=== PATIENT | male | born 1940 | race Caucasian/White ===

== ENCOUNTER 2016-12-24 06:02 | Inpatient (IN) | payer MEDICARE ==
[~2016-12-24] VITALS: Ht 172.7 cm; Wt 83.9 kg
[2016-12-24] VITALS (17 sets, daily range): BP systolic 104–142; BP diastolic 45–78; PULSE 71–124; RESP 10–21; O2SAT 90–100
[~2016-12-24 06:02] MED LIST: ATOR20TA PO; CeFAZolin 2 Gm/50 mL D5W IV Premix IV ONE; CeFAZolin 2 Gm/50 mL D5W IV Premix IV PRN; DEXTROSE IV ONE; Furosemide 10 mg/mL 2 mL Inj IV ONE; Furosemide 10 mg/mL 2 mL Inj IV PRN; GABA-502 PO; GLIM4TAB2 PO; HYDR-4003 PO; LISI1TAB9 PO; Lactated Ringer's 1,000 ML IV ONE; MANNITOL IV ONE; METF1000 PO; METO25TA99 PO; Mannitol 25% 12.5 Gm/50 mL Inj IVPUSH PRN; NITR0.4T6 SL; TRIA0.1220 PO; TRIA0.2525 PO
--- NOTE | 2016-12-24 07:20 | PCM.HPANE ---
Patient Data Surgeon Admitting Provider: Attending Provider:Brenda Spaulding MD Primary Care Physician:Servando Gomez MD Other Provider:[facility] Reason for Visit Right Renal Mass Ht/WT & BMI Height (Feet): 5 Height (Inches): 8 Weight (Kilograms): 80.9 Body Mass Index 27.00 Allergies Coded Allergies: No Known Allergies (Unverified , 08/15/16) Past Anesthesia History Anesthesia History: Denies:: Abnormal Airway, Anesthesia Reactions, Difficult Intubation, Fam Anesthesia Reaction, Fam Malignant Hypertherm, Malignant Hyperthermia Diabetes History Hx Diabetes?: Yes Type of Diabetes: Type II Glycemic Control: Oral Medication MRSA MRSA: No Medications Hypertension Medication: Yes (lisinopril/hctz) Home Meds Incl Beta Taj: Yes Date Beta Taj Taken: Dec 23, 2016 Time Beta Taj Taken: 0800 Reported Medications Hydrocodone-Acetaminophen 5-325 mg 1 Each Tablet1 Tablet PO Q10H PRN For Pain Ref 0 12/21/16 Gabapentin 300 Mg [id number] Mg PO BID Ref 0 12/21/16 Nitroglycerin SL 0.4 Mg Tab.subl0.4 Mg SL 08/14/16 Metoprolol Succinate ER 25 Mg Tab.er.24h25 Mg PO DAILY Ref 0 08/14/16 Atorvastatin (Lipitor)20 Mg Gpcvop32 Mg PO DAILY Ref 0 08/14/16 Triazolam 0.125 Mg Tablet0.125 Mg PO HS PRN Insomnia 30 Days 06/15/16 Metformin (Glucophage)1,000 Mg Tablet1,000 Mg PO BID Ref 0 06/14/16 Lisinopril / HCTZ 20-12.5 mg 1 Each Tablet1 Each PO DAILY Ref 0 06/14/16 Glimepiride 4 Mg Tablet4 Mg PO BID #30 TABLET Ref 0 06/14/16 Discontinued Reported Medications Triazolam 0.25 Mg Tablet0.125 Mg PO HS PRN sleep 30 Days 08/14/16 Cholecalciferol (Vitamin D3) (Vitamin D3)2,000 Unit Capsule2,000 Unit PO DAILY 08/14/16 Cyanocobalamin (Vitamin B12)500 Mcg [id number] Mcg PO DAILY 08/14/16 Multivitamin (Multivitamins)1 Each Capsule1 Each PO DAILY 06/15/16 Aspirin 325 Mg Raxdhv364 Mg PO DAILY #1 BOTTLE 06/14/16 History History of ENT Problems?: No HEENT History: Positive for:: Cataracts Hearing Problem Denies:: Abnormal Airway Difficult Intubation Dysphagia Glaucoma Sinus Problem TMJ Denture Type: None Teeth Condition: Within Normal Limits Missing Teeth Hx of Heart Problems?: No Cardiovascular History: Positive for:: Chest Pain (cardiology cardiac work up "heart is strong") Edema Hypertension Peripheral Vascular Denies:: AICD Abdominal Aortic Aneurism Atrial Fibrillation Cardiac Surgery Congestive Heart Failure Coronary Artery Disease Heart Murmur Irregular Heartbeat Pacemaker Rheumatic Fever Thrombophlebitis Valvular Heart Disease Hx of Respiratory Problem?: Yes Respiratory History: Positive for:: Chest Surgery (CT guided Bx lt lung ) Denies:: Asthma COPD Cough Dyspnea Hemoptysis Oxygen Administration Pneumonia Pulmonary Embolism Tuberculosis Use of C-PAP Machine Use of Inhalers / NEBS Hx Neurologic Problems?: No Neurological History: Positive for:: Dizziness (worse straining) Denies:: Alzheimer's Disease CVA Dementia Headaches Multiple Sclerosis Parkinson's Disease Seizures TIA Hx of GI Problems?: No Gastrointestinal History: Denies:: Cirrhosis Diverticulitis Gall Bladder Disease Gastroesphageal Reflux Gastrointestinal Bleeding Heartburn Hepatitis Hiatal Hernia Liver Disease Rectal Bleeding Hx of Problems?: Yes Genitourinary History: Positive for:: Kidney Stones (passed on own last one 10 years ago) Denies:: HX of Hemodialysis Urinary Tract Infection HX of Peritoneal Dialysis: No Male Hx: Denies:: Prostate Problems Scrotal Mass Testicular Surgery Skin History: Denies:: History Skin Disorders? Pressure Ulcers Hx Musculoskeletal Problems?: No Musculoskeletal History: Positive for:: Osteoarthritis Denies:: Back Injury Degenerative Joint Fibromyalgia Joint Replacement Musculoskeletal Trauma Myasthenia Gravis Rheumatoid Arthritis Systemic Lupus Hx of Psycho/Social Problems?: No Hx Surgeries?: No Hx Any Other Health Problems?: Yes Other History: Positive for:: Hospitalization Denies:: Cancer Endocrine Disease Thyroid Disease History Blood Transfusions: Denies:: Blood Transfuse Reaction Blood Transfusions Hx Diabetes: Yes Hx Alcohol Use: NoHx Substance Use: No Smoking Status: Unknown if Ever Smoker Have You Smoked inLast 12 mo: No Stop/Bang Treated for Sleep Apnea?: No Do You Have a CPAP Machine?: No S-Snoring: Do You Snore Loudly: No T-Tired: feel tired, fatigued: Yes O-Obsered: Observed not breath: No P-Blood Pressure: treated: Yes B- Body Mass Index > 35 kg/m2: No A- Age over 50: Yes G- Gender Male: Yes RAMÍREZ Risk Assessment: Low Risk, <3 Yes Risk Assessment Category Category 1A: Patient has history of documented sleep apnea, and HAS NOT received any narcotic, sedative or anesthesia administration during this stay. Category 1B: Patient has history of documented sleep apnea, and HAS received any narcotic , sedative or anesthesia administration during this stay Category 2: Patient has SUSPECTED Obstructive Sleep Apnea, and HAS received any narcotic , sedative or anesthesia administration during this stay. Category 3: Patient has SUSPECTED Obstructive Sleep Apnea and HAS NOT received narcotic, sedative or anesthesia administration during this stay. Category 4: Outpatient in Procedural Areas with known sleep apnea or who screen positive for High Risk via the STOP/BANG questionnaire. Exam Exam Vital Signs Vital Signs Date Time Temp Pulse Resp B/P Pulse Ox O2 Delivery O2 Flow Rate FiO2 12/24/16 06:30 35.9 78 15 125/64 97 Room Air General Appearance: Oriented X3 HEENT/AIRWAY: MP 2 Lungs: Normal Air Movement Heart: Regular Rate/Rhythm Meds/Labs/Diagnostics Admission Meds Current Medications Lactated Ringer's (Lr) 1,000 ml @ 120 mls/hr Q8H20M ONCE IV Last administered on 12/24/16t 06:31; Start 12/24/16 at 05:00; Stop 12/24/16 at 13:19 Labs Test 12/23/16 09:25 12/24/16 07:13 Hold Urine Received (Received) Hold Rickreall Top Tube Received (Received) Plan Impression Patient chart reviewed, patient interviewed and anesthestic plan with risks, benefits, and alternatives discussed, and informed consent obtained. ASA Physical Status: ASA3 Severe Disease Anesthetic Support Modalities: Arterial Line Anesthetic Plan: GA, SAB Bene/Risks/Altern/Consents: Yes HP Complete Prior to Induction: Yes Dontrell Vallejo MD Dec 24, 2016 07:20
[2016-12-24] MEDS ORDERED: Labetalol 5 mg/mL 4 mL Inj IV PRN (08:10)
[2016-12-24] MEDS ORDERED: EPHEDrine Sulfate 50 mg/mL Inj IVPUSH PRN (08:10)
[2016-12-24] MEDS ORDERED: Lactated Ringer's 1,000 ML IV SCH (08:10)
[2016-12-24] MEDS ORDERED: HYDROmorphone 1 mg/mL Inj IVPUSH PRN (08:10)
[2016-12-24] MEDS ORDERED: Ondansetron 2 mg/mL 2 mL Inj IVPUSH PRN (08:10)
[2016-12-24] MEDS ORDERED: Lactated Ringer's 500 ML IV PRN (08:10)
[2016-12-24] MEDS ORDERED: Phenylephrine 10,000 mCg/mL Inj IVPUSH PRN (08:10)
[2016-12-24] MEDS ORDERED: Dexamethasone 4 mg/mL Inj IVPUSH PRN (08:10)
[2016-12-24] MEDS ORDERED: MetoCLOpramide 5 mg/mL 2 mL Inj IVPUSH PRN (08:10)
[2016-12-24] MEDS ORDERED: Lactated Ringer's 1,000 ML IV ONE (10:12)
[2016-12-24 10:26] LABS: APPEARANCE,URINE CLEAR (CLEAR,HAZY); COLOR,URINE STRAW (YELLOW); OCCULT BLOOD,URINE TRACE (NEGATIVE); UROBILINOGEN,URINE NORMAL (NORMAL)
[2016-12-24] MEDS: fentaNYL-PF 50 mCg/mL 2 mL Inj IVPUSH PRN ×2 (11:01→11:29)
[2016-12-24] MEDS ORDERED: diphenhydrAMINE 25 mg Capsule PO PRN (11:20)
[2016-12-24] MEDS ORDERED: MetoCLOpramide 5 mg/mL 2 mL Inj ONE (12:03)
[2016-12-24] MEDS ORDERED: Phenylephrine/NS 100 mCg/mL 10 mL Syringe IVPUSH ONE (12:03)
[2016-12-24] MEDS ORDERED: Bupiv-Spinal 0.75%/Dex 8.25% 2 mL Inj ONE (12:03)
[2016-12-24] MEDS ORDERED: MeTOProlol 1 mg/mL 5 mL Inj ONE (12:03)
[2016-12-24] MEDS ORDERED: Ondansetron 2 mg/mL 2 mL Inj ONE (12:03)
[2016-12-24] MEDS ORDERED: Mannitol 25% 12.5 Gm/50 mL Inj ONE (12:03)
[2016-12-24] MEDS ORDERED: Morphine PF 1 mg/mL 10 mL Inj ONE (12:03)
[2016-12-24] MEDS ORDERED: Rocuronium 10 mg/mL 5 mL Inj ONE (12:03)
--- NOTE | 2016-12-24 12:24 | PCM.ANEP1 ---
Post Anesthesia PACU Phase 1 Assessment Vital Signs Vital Signs Date Time Temp Pulse Resp B/P Pulse Ox O2 Delivery O2 Flow Rate FiO2 12/24/16 11:30 83 11 104/47 97 Nasal Cannula 2 12/24/16 11:25 82 11 104/48 90 Room Air 12/24/16 11:15 36.2 79 10 110/45 100 Simple Mask 8 12/24/16 11:10 76 13 105/51 100 Simple Mask 8 12/24/16 11:00 71 18 112/49 100 Simple Mask 8 12/24/16 10:55 75 20 109/51 100 Simple Mask 8 12/24/16 10:50 75 21 112/52 100 Simple Mask 8 12/24/16 10:50 21 100 12/24/16 10:45 36.6 77 20 119/54 100 Simple Mask 8 12/24/16 06:30 35.9 78 15 125/64 97 Room Air Anesthetic Administered: GA, SAB Level of Alertness: Awake, talking Pain: No Nausea or Vomiting: No CV Function & Hydration Stable: Yes Airway Device: Lungs: Normal Air Movement Dermatome Level: Full Sensation PACU Phase 2 Assessment Patient Instructions Provided: N/A Dontrell Vallejo MD Dec 24, 2016 12:24
[2016-12-24] MEDS: HYDROmorphone 1 mg/mL Inj IVPUSH PRN ×2 (12:39→16:28)
[2016-12-24] MEDS: Lactated Ringer's 1,000 ML IV SCH ×2 (12:47→21:25)
--- NOTE | 2016-12-24 13:13 | NUR ---
Transfer to 1003 Patient arrived from PACU via bed, report received from IRENA Parr. Incision site well approx, bio-occlusive dressing C/D/I. ROMAN drain has small amount sero-sang drainange. Pt somnolent but arousable to verbal stimulation. VSS. C/o 9/10 abdominal pain, PRN dilaudid given with some relief. Patient also c/o nausea, zofran given. Pt resting with eyes closed, family at bedside, call light within reach.
--- NOTE | 2016-12-24 16:21 | NUR ---
Respiratory Pt approached twice for IS instruction, not appropriate to follow instruct either time. Will revisit at later time.
--- NOTE | 2016-12-24 17:54 | NUR ---
Mentation/tele/drain Patient continues to be somnolent but arousable. Pt not alert enough to take PO meds at this time. Tele monitoring ordered and started, pt ST in the 120-130s. ROMAN output approx 100mL since arrival to floor. paged, waiting for call back.
--- NOTE | 2016-12-24 19:09 | DRSVH ---
PROCEDURE: CT BRAIN WITHOUT CONTRAST ([id number]) INDICATIONS: Decreased mental status TECHNIQUE: Noncontrast 4.5 mm thick angled axial sections acquired from the foramen magnum to the vertex, with c oronal reformats. COMPARISON: [facility], MR, MR BRAIN W&WO CON, 06/15/2016, 14:53. FINDINGS: Image quality: Excellent. CSF spaces: Basal cisterns are patent. No extra-axial fluid collections. The ventricles are symmet leydi in size and shape. Brain: No intracranial bleeds or masses. There is cerebral volume loss for age, with resultant vent ricular and sulcal prominence. There are periventricular and deep white matter chronic small vessel ischemic changes. There is intracranial internal carotid artery atherosclerosis. Skull and face: Calvarium and visualized facial bones appear intact, without suspicious lesions. Sinuses: Visualized sinuses and mastoids are clear. IMPRESSION: 1. No acute intracranial process. 2. Moderate atrophy and chronic microvascular ischemic changes. Dictated by: Yomaira Zavala M.D. on 12/24/2016 at 19:07 Approved by: Yomaira Zavala M.D. on 12/24/2016 at 19:07
--- NOTE | 2016-12-24 19:28 | OP ---
[address] [address] OPERATIVE REPORT PATIENT: SHIVAM SEXTON : 1940 MR#: [id number] ADMIT: 12/24/2016 JOB ID: [id number] DATE OF SURGERY: 12/24/2016 PREOPERATIVE DIAGNOSIS(ES): Right renal mass. POSTOPERATIVE DIAGNOSIS(ES): Right renal mass. PROCEDURE PERFORMED: 1. Right open partial nephrectomy. 2. Intraoperative ultrasound. SURGEON: Brenda Spaulding MD. NEUROSCIENTIST: Troy Alejandro MD (his expert technical assistance was required to aid in the dissection of the renal mass). FINDINGS: 1. A right renal mass abutting the collecting system consistent with the CT findings which demonstrated the lesion to be 3.7 cm in greatest diameter. 2. A 35 minute clamp time of the right renal vessels. ANESTHESIA: 1. General. 2. Duramorph epidural. ESTIMATED BLOOD LOSS: 500 mL. DRAINS: 1. A 19 round ROMAN drain. 2. A 16-Tunisian Cabrera catheter to the bladder. SPECIMENS: 1. Fat overlying tumor 2. Deep base of renal tumor. 3. Right renal mass. COMPLICATIONS: None. CONDITION: Stable. INDICATION: The patient is a 76-year-old gentleman with a right renal mass. He now presents for the aforementioned procedure. DESCRIPTION OF PROCEDURE: After informed consent was obtained, the patient was taken to the operating room. A time-out was performed identifying correct patient, surgical site, and procedure. General anesthesia was smoothly induced. He was given intravenous antibiotics just prior to the start of procedure. He was placed in a supine position. All pressure points were identified and appropriately padded. A Cabrera catheter was placed using sterile technique in the patient's bladder. It was set to dependent drainage. His abdomen and flank were then prepped and draped in usual sterile fashion. Approximately two fingerbreadths inferior to the right subcostal margin, a 4-5 inch incision was made with a 10 blade. Bovie electrocautery was used to incise the subcutaneous tissues, muscle, and fascial layers. Entry into the intraperitoneal cavity was gained. The white line of Toldt was incised, reflecting the colon medially. Some of the mesenteric attachments were also taken down with Bovie electrocautery. The Bookwalter device was placed over the patient with care being taken to not directly rest it on the patient. The right ureter was identified at the inferior cone of Gerota's. It was tagged with a vessel loop. Next, the duodenum was dissected away from its mesenteric attachments and reflected medially. The inferior vena cava was seen. There was a right renal vein seen also with this maneuver. The renal artery was identified posterior it. It should be noted that the patient has diffuse atherosclerosis involving the aorta as well as the proximal branches of the renal arteries. Care was taken to not manipulate these plaques and the dissection of the renal artery commenced distally towards the renal hilum. The renal vein and artery were then tagged with vessel loops. Next, the kidney was freed from its lateral attachments and some of its superior attachments as well. Gerota's was entered. Over the inferior aspect, the fat was incised over the tumor. The fat was divided over the renal tumor and this was passed off as fat over renal tumor to Pathology for permanent section. Next, the tumor could be plainly seen and an intraoperative ultrasound was performed. This confirmed that the renal mass was abutting the collecting system. 12.5 g of mannitol were given intravenously. Then, the renal hilum, that being the vein and artery together, were clamped with a bulldog. The kidney was iced for 10 minutes. Next, the renal capsule was scored with Bovie electrocautery. The mass was then dissected away from the kidney. This was sent to Pathology as renal mass and it was later tagged at the base to identify the deep margin. Tissue was removed from the base of the defect and passed off the table as frozen section which returned as negative for malignancy. 4-0 Vicryl was used in the defect at the collecting system to close a small opening there and then the bed was also treated with the 4-0 Vicryl as well as some of the small arterial bleeding. Next, argon beam cautery was used at the perimeter at the edge of the defect. FloSeal was placed within the defect as well. Two rolls of Surgicel were placed within the defect and 0 chromic x3 in an interrupted fashion were placed through the capsule, over the Surgicel rolls and out the other side of the defect. These were then all secured down. The clamp was then removed. The overall clamp time was 35 minutes, which is a reflection of just how deep this tumor was into the kidney. Surgicel was placed over the defect and Gerota's was closed over it with interrupted 2-0 chromic. The renal hilum was inspected. It was pulsating and appeared normal. The colon was replaced in its orthotopic position as well as omentum. A 19 round ORMAN drain was placed over this and secured to the skin with 2-0 nylon. The fascial layers were closed with looped 0 PDS x2 from the medial to lateral aspects of the incision. The wound was copiously irrigated, and the Fatuma's layer was closed with 3-0 chromic in interrupted fashion. The skin was then closed with 4-0 Monocryl in running subcuticular fashion. Dermabond was placed over the wound and a drain sponge and Tegaderm was placed over the ROMAN drain. The patient was then reversed from general anesthesia and taken to PACU in good and stable condition. All sponge, needle, instrument counts were correct at the end of the procedure. The patient appeared to tolerate the procedure well without apparent complications. PETER
[2016-12-24 19:55] LABS: BASOPHILS % (AUTO) 0.1 % (0-3); EOSINOPHILS % (AUTO) 0 % (0-5); MONOCYTES % (AUTO) 8.9 % (4-12); Mean Corpuscular Volume 89.5 fL (81-100); NEUTROPHILS % (AUTO) 87.1 % (40-74); Platelet Count 239 bil/L (150-400)
--- NOTE | 2016-12-24 20:28 | PCM.CHPMED ---
Subjective Date of Service: Dec 24, 2016 Provider requesting consult: Brenda Spaulding MD Primary Physician: Admitting Physician: Brenda Spaulding MD Primary Care Physician: Servando Gomez MD Attending Physician: Brenda Spaulding MD Chief Complaint: Chief Complaint: Confusion, tachycardia History of Present Illness: Patient is a 76 year old male with a history of a right renal mass, T2DM, HTN, HLD, and a lung mass who was admitted for a right partial nephrectomy for the right renal mass per Dr. Spaulding. Following the surgery, the patient was noted to be somnolent, but arousable, and confused. He was also noted to be tachycardic in the 110s-120s following surgery. He reports mild abdominal pain at his incision site, but states this is well-controlled. He reports some confusion, generalized weakness, mild nausea, fatigue, difficulty with word finding, and chronic bilateral lower extremity numbness/tingling. He denies facial droop, slurred speech, dysphagia, focal weakness or numbness, vision changes, fevers, chills, vomiting, diarrhea, shortness of breath, chest pain, palpitations, or diaphoresis. Temp 36.8, HR 110, RR 17, BP 137/75, O2 93 on room air. WBC 15.1 with 87% neutrophils, Hb 12.2, Hct 37.7, Plt 239. EKG showed sinus tachycardia. CT head showed no acute pathology, but with moderate atrophy and chronic microvascular ischemic changes. Pt had normal stress test on 07/26/16. Echo on same day showed normal EF with borderline concentric LVH and relaxation abnormality of the LV. Review of Systems: Comprehensive review of systems conducted and was negative except for the pertinent positives listed above. PMH Past Medical History 1. Diabetes, diagnosed over 10 years ago, uncontrolled. Most recent hemoglobin A1c is 8.8% as of January 2015. 2. Hyperlipidemia. Previously on simvastatin but is no longer taking this medication due to muscle aches. 3. Kidney stones. 4. Hypertension, controlled on lisinopril. 5. Lung mass. This problem came to medical attention in November 2015 and did not resolve with medical therapy. Biopsy demonstrated benign tissue. 6. Peripheral neuropathy. EMG June 20, 2016, showed moderate axonal and demyelinating peripheral neuropathic process involving bilateral lower extremities. He also has myopathic pattern of the EMG, left worse than right. This could be related to diabetic neuropathy or statin myopathy. 7. Vitamin B 12 deficiency. In the past treated with B12 shots. Most recent available B12 level was 268 as of May 2012. 8. Right bundle branch block, newly identified today in the emergency department. Unfortunately there are no old EKGs available for review. Bedside Blood Glucose: 211 Surgical History Right partial nephrectomy Allergies: Coded Allergies: No Known Allergies (Unverified , 08/15/16) Family History Family History No history of autoimmune disease or lung disease. Social History Hx Alcohol Use: NoHx Substance Use: No Smoking Status: Unknown if Ever Smoker Exam Vital Signs Vital Sign - Last Date Time Temp Pulse Resp B/P Pulse Ox O2 Delivery O2 Flow Rate FiO2 12/24/16 18:46 36.8 124 142/78 94 Nasal Cannula 3.00 12/24/16 16:37 16 Additional Information: General: Alert, Oriented X3 (to name, date, and place), Cooperative, Slightly somnolent but arousable. Appears fatigued. No acute distress Head: Normocephalic, atraumatic. External ears normal. Eyes: PERRLA, EOMI. Anicteric sclerae. Mouth: Mouth normal, Mucous membranes moist/pink Neck: Neck supple with full range of motion. Chest& Lungs: Clear to auscultation bilaterally with no crackles, wheezes, or rhonchi. Cardiovascular: Regular rate/rhythm, Normal S1, Normal S2, No murmurs/rubs/ gallops Abdomen: Non-tender, Non-distended, No masses, Normoactive bowel tones, Soft Musculoskeletal: Normal range of motion Extremities: No cyanosis/clubbing/edema bilaterally Neurological: Generalized weakness in all 4 extremities. Pt has intermittent trouble with word finding, but towards the end of the visit he was conversational, speaking in full sentences. CN II-XII intact. Finger-nose slow but normal. Lab and Diagnostics Result Diagram: 12/24/161944 Assessment & Plan Assessment Patient is a 76 year old male with a history of a right renal mass, T2DM, HTN, HLD, and a lung mass who presented with somnolence, confusion, and sinus tachycardia status post right partial nephrectomy for the right renal mass. Altered mental status, acute. - Patient appears slightly somnolent and tachycardic post surgery. There are no focal neurologic signs on exam and CT head was negative, so stroke is less likely. Given his tachycardia, consider PE vs sepsis. His WBC was elevated as well; while this may be a stress reaction, there was a left shift. UA negative. - Lactic acid ordered - BMP ordered - CXR ordered - Blood cultures ordered - Monitor vitals regularly - Continue LR @ 125 ml/hr - Started Zosyn q8h. Tachycardia, acute. - HR has been 110s to 120s since the surgery this AM. EKG shows sinus tachycardia. He does not reports severe pain. Given his hypercoagulable state, recent surgery, and tachycardia, pulmonary embolism is suspect. Lower ext US is ordered. Will defer CT angio to a later time as pt is s/p nephrectomy. If he continues to be tachycardic and his kidney function is normal, consider CT angio chest in the future. However, he likely cannot be placed on warfarin at this time as he is post surgery. - Lower extremity doppler ordered - Monitor on telemetry - Consider CT angio chest in future - Troponin ordered Lactic acidosis, acute. - Lactic acid trending up despite fluid resuscitation. Possible sepsis with unknown source. Will start Zosyn - Zosyn q8h Diabetes mellitus - Glucose 251. - Ordered A1c - Humalog 3 U with meals and medium dose correctional scale - Lantus 10 U qhs Hyperkalemia - Consider switching from LR to NS - Recheck BMP in AM Hyperlipidemia. - Previously on simvastatin but is no longer taking this medication due to muscle aches. Hypertension - Controlled on lisinopril Problems: VTE Mechanical Devices: Intermittant Pneumatic CD Jin Tariq Dec 24, 2016 20:28
[2016-12-24 20:50] LABS: TROPONIN T < 0.010 ug/L (0.0-0.011)
[2016-12-25] VITALS (7 sets, daily range): BP systolic 107–121; BP diastolic 58–70; PULSE 99–120; RESP 15–18; O2SAT 94–96
[2016-12-25] MEDS: HYDROmorphone 1 mg/mL Inj IVPUSH PRN ×5 (01:21→20:21)
[2016-12-25] MEDS: Lactated Ringer's 1,000 ML IV SCH ×3 (03:16→19:16)
--- NOTE | 2016-12-25 04:27 | NUR ---
Mentation Patient A&O, able to make needs known and use call light. Mentation began to clear as night progressed, now able to answers questions appropriately. Bed in low position, call light within reach, and intentional rounding. Will continue to monitor.
[2016-12-25] MEDS ORDERED: Glucose 40% Oral Gel 15 Gm Tube PO PRN (04:50)
[2016-12-25] MEDS ORDERED: Piperacillin-Tazo 3.375 Gm Inj 3.375 GM in Dextrose 5% Minibag Plus 50 ML IV ONE (05:30)
--- NOTE | 2016-12-25 07:05 | DRSVH ---
PROCEDURE: US VENOUS LEG DUPLEX BILATERAL INDICATIONS: DVT? TECHNIQUE: Real-time imaging, as well as color and pulse Doppler interrogation, were performed of the deep veins of both legs from the inguinal ligament to the popliteal fossa. COMPARISON: [facility], US, US RENAL, 10/29/2016, 13:23. FINDINGS: The deep veins are normally compressible, and free of intraluminal thrombus. Color and pu lse Doppler demonstrate normal phasic intravascular flow. There is normal augmentation response to d istal compression maneuver. IMPRESSION: No sonographic evidence of deep venous thrombus bilaterally. Dictated by: Zoran Taylor M.D. on 12/25/2016 at 6:57 Approved by: Zoran Taylor M.D. on 12/25/2016 at 6:58
[2016-12-25] MEDS: Insulin LISPRO 300 Unit/3 mL Inj SUBQ SCH ×4 (08:00→22:00)
[2016-12-25] MEDS: oxyCODONE-Acetamin 5-325 mg Tablet PO PRN (09:28)
[2016-12-25] MEDS: MeTOProlol XL 25 mg ER24 Tablet PO SCH (09:29)
[2016-12-25] MEDS: Ondansetron 2 mg/mL 2 mL Inj IVPUSH PRN (12:54)
[2016-12-25] MEDS: Piper-Tazo 3.375 Gm/50 mL D5W Minibag Plus - Q8H over 4 hrs IV SCH ×4 (15:17→22:16)
--- NOTE | 2016-12-25 16:44 | DRSVH ---
PROCEDURE: X-RAY CHEST ONE VIEW, PORTABLE ([id number]) INDICATIONS: Tachycardia, elevated WBC TECHNIQUE: One view of the chest was acquired. COMPARISON: [facility], CT, CT BX LUNG MEDIASTINUM, 08/15/2016, 8:57. [facility], CT, CT ANGIO CHEST PE, 04/27/2016, 13:19. [facility], CR, XR CHEST 1VW (PORTABLE), 06/15/2016, 12:30. [facility], CR, XR CHEST 1VW (PORTABLE), 08/15/2016, 10:32. [facility], CR, XR CHEST 2VW, 12/17/2016, 13:02. FINDINGS: Surgical changes and devices: None. Lungs and pleura: No pleural effusions or pneumothorax. Lungs are clear, aside from left mid lung p erihilar mass. Segmental atelectasis Basi right lung base. Mediastinum: Mediastinal contours are normal. Heart size is normal. Bones and chest wall: No suspicious bony abnormalities. Soft tissues appear unremarkable. IMPRESSION: Left midlung perihilar mass unchanged over time and there is mild right basilar atelectas is. Dictated by: Wiliam Keating [facility] Interpreted: Bobo Zimmerman MD on 12/25/2016 at 11:31 Approved by: Bobo Zimmerman M.D. on 12/25/2016 at 16:42
--- NOTE | 2016-12-25 16:53 | NUR ---
Dumont Dumont DC'd at 1045. Patient not spontaneously voiding. Bladder scan 375cc. 16F dumont placed. Call light and tray table within reach. Will continue to monitor patient hourly.
--- NOTE | 2016-12-25 17:29 | PCM.PNSURG ---
Subjective Date of Service: Dec 25, 2016 Date of Service: Dec 25, 2016 Visit Information: Reason for Visit Right Renal Mass Surgery/Surgery Date R OPEN PARTL NEPHRECTOMY 12/24/16 Post-Op Day # 1 Date of Admission: Dec 24, 2016 at 12:02 Hospital Day #2 Subjective: Pt c/o ongoing weakness,confusion, nausea, difficulty with word finding, fatigue. He reports incisional pain is well controlled at this time. He denies any slurred speech, vision changes, fever, chills, vomiting, chest pain, palpitations. He had dumont removed one hour prior to visit. He stood up from bed this morning, which caused him extreme nausea and dizziness. Postop General: No Chest Pain Gastrointestinal: Other (nausea) Objective Vital Sign- Last 8 Hours Date Time Temp Pulse Resp B/P Pulse Ox O2 Delivery O2 Flow Rate FiO2 12/25/16 15:02 36.8 105 16 120/62 96 Room Air 12/25/16 10:37 120 Intake and Output- Last 8 Hour 12/25/16 Cumulative From/Thru 07:00 12/20/16 16:19 - 12/25/16 05:57 Intake Total 2605 ml 4855 ml Output Total 775 ml 2675 ml Balance 1830 ml 2180 ml Intake Oral 800 ml 1200 ml IV Total 1805 ml 3655 ml Output Urine Total 750 ml 2050 ml Drainage Total 25 ml 125 ml Estimated Blood Loss 500 ml # Bowel Movements 0 0 General: Alert, Oriented X3 (pt able to state name, date, why he is in hospital , what surgery he had. he is slightly somnolent ), No Acute Distress Neck: Supple Abdomen: Soft, Appropriately tender, Other (incision sites c/d/i, chi drain with serosanginous exudate) Neuro: Other (trouble with word finding, however speaking in full sentences, alert and oriented. ) Catheters: None Result Diagram: 12/25/1644612/25/16446 Assessment & Plan Impression POD #1 Right open partial nephrectomy. Problems: Plan Altered mental status post op pt was tachycardic and slightly somnolent CT head was negative troponins negative grossly neurologically intact on exam, no focal deficits there was concern for sepsis versus PE, lactic acid was 3 and he was tachycardic however afebrile, not tachypneic. lower ext doppler showed no evidence of DVT blood cultures are pending hgb/hct stable Recommend holding any blood-thinning medications (including ASA) Hospitalist consultation appreciated Catheter was removed around 11am, visited pt at noon and had not yet voided. Encouraged IS Advance diet as tolerated Continue IV dilaudid and norco for pain Encourage OOB to chair and ambulation with assistance. Physical therapy consultation requested. Luiza Treviño PA-C Dec 25, 2016 17:28
--- NOTE | 2016-12-25 19:23 | NUR ---
Pain Pain managed with 2mg of Dilaudid every 2 hours as needed. Slight nausea this shift. 4mg ondansetron given. Patient repositions self for comfort. Dressing CDI. Call light and tray table within reach. Will continue to monitor patient hourly.
--- NOTE | 2016-12-25 20:19 | PCM.PNMED ---
Subjective Date of Service Dec 25, 2016 Subjective Patient is having severe pain worse and he has ever had before. He also has had several kidney stones but this pain is much worse. Exam Vital Signs Vital Sign - Last Date Time Temp Pulse Resp B/P Pulse Ox O2 Delivery O2 Flow Rate FiO2 12/25/16 20:09 36.8 114 16 111/64 96 Room Air 12/24/16 18:46 3.00 Intake and Output 12/24/16 12/24/16 12/25/16 Cumulative From/Thru 15:00 23:00 07:00 12/20/16 16:19 - 12/25/16 05:57 Intake Total 1850 ml 400 ml 2605 ml 4855 ml Output Total 1370 ml 530 ml 775 ml 2675 ml Balance 480 ml -130 ml 1830 ml 2180 ml Intake Oral 400 ml 800 ml 1200 ml IV Total 1850 ml 1805 ml 3655 ml Output Urine Total 800 ml 500 ml 750 ml 2050 ml Drainage Total 70 ml 30 ml 25 ml 125 ml Estimated Blood Loss 500 ml 500 ml # Bowel Movements 0 0 Exam General: Patient appears uncomfortable and is not taking deep breaths due to his right lower quadrant pain HEENT: Head is atraumatic and normocephalic. Eyes: Pupils are equally round and reactive to light and accommodation. Extraocular muscles are intact. Sclera are white, anicteric. Subconjunctival mucosa is pink. Ears and nose are unremarkable. Oropharynx: There is no mucosal lesions, there is no thrush, there is no pharyngitis. Neck: Is supple, there are no nodes, or masses or tenderness. Chest: Is clear to auscultation and percussion. There are no rales, rhonchi, wheezes or rubs. However, breath sounds are shallow. Heart: Rate is tachycardic, rhythm is regular. There is no murmur, rub or gallop. Abdomen: Abdomen is quiet. Abdomen is firm, with postoperative incisional tenderness, no organomegaly or masses were appreciated. Incision looks excellent. There is a drain in place and site is unremarkable. There is no crepitance or cellulitis around the incision. There is no drainage. Extremities: Are symmetrical and well perfused. There is no edema, there is no cellulitis, no rash. Neurologic: There are no focal neurological deficits. Cranial nerves II through XII are intact. There are no sensory or motor deficits. Psychiatric: Patients mood is calm and shows no sign of agitation. Genital: Deferred Rectal: Deferred Lab and Diagnostics Result Diagram: 12/25/1644612/25/16446 Microbiology Cultures from last evening are pending X-Rays, CTs and MRIs PROCEDURE: X-RAY CHEST ONE VIEW, PORTABLE ([id number]) INDICATIONS: Tachycardia, elevated WBC TECHNIQUE: One view of the chest was acquired. COMPARISON: [facility], CT, CT BX LUNG MEDIASTINUM, 08/15/2016, 8: 57. [facility], CT, CT ANGIO CHEST PE, 04/27/2016, 13:19. [facility], CR, XR CHEST 1VW (PORTABLE), 06/15/2016, 12:30. [facility], CR, XR CHEST 1VW (PORTABLE), 08/15/2016, 10:32. [facility] , CR, XR CHEST 2VW, 12/17/2016, 13:02. FINDINGS: Surgical changes and devices: None. Lungs and pleura: No pleural effusions or pneumothorax. Lungs are clear, aside from left mid lung perihilar mass. Segmental atelectasis Basi right lung base. Mediastinum: Mediastinal contours are normal. Heart size is normal. Bones and chest wall: No suspicious bony abnormalities. Soft tissues appear unremarkable. IMPRESSION: Left midlung perihilar mass unchanged over time and there is mild right basilar atelectasis. Dictated by: Wiliam Keating RR Interpreted: Bobo Zimmerman MD on 12/25/2016 at 11 :31 Approved by: Bobo Zimmerman M.D. on 12/25/2016 at 16:42 PROCEDURE: US VENOUS LEG DUPLEX BILATERAL INDICATIONS: DVT? TECHNIQUE: Real-time imaging, as well as color and pulse Doppler interrogation, were performed of the deep veins of both legs from the inguinal ligament to the popliteal fossa. COMPARISON: [facility] Ultrasound, US, US RENAL, 10/29/2016, 13:23. FINDINGS: The deep veins are normally compressible, and free of intraluminal thrombus. Color and pulse Doppler demonstrate normal phasic intravascular flow. There is normal augmentation response to distal compression maneuver. IMPRESSION: No sonographic evidence of deep venous thrombus bilaterally. Dictated by: Zoran Taylor M.D. on 12/25/2016 at 6:57 Approved by: Zoran Taylor M.D. on 12/25/2016 at 6:58 PROCEDURE: CT BRAIN WITHOUT CONTRAST ([id number]) INDICATIONS: Decreased mental status TECHNIQUE: Noncontrast 4.5 mm thick angled axial sections acquired from the foramen magnum to the vertex, with coronal reformats. COMPARISON: [facility], MR, MR BRAIN W&WO CON, 06/15/2016, 14:53. FINDINGS: Image quality: Excellent. CSF spaces: Basal cisterns are patent. No extra-axial fluid collections. The ventricles are symmetric in size and shape. Brain: No intracranial bleeds or masses. There is cerebral volume loss for age , with resultant ventricular and sulcal prominence. There are periventricular and deep white matter chronic small vessel ischemic changes. There is intracranial internal carotid artery atherosclerosis. Skull and face: Calvarium and visualized facial bones appear intact, without suspicious lesions. Sinuses: Visualized sinuses and mastoids are clear. IMPRESSION: 1. No acute intracranial process. 2. Moderate atrophy and chronic microvascular ischemic changes. Dictated by: Yomaira Zavala M.D. on 12/24/2016 at 19:07 Approved by: Yomaira Zavala M.D. on 12/24/2016 at 19:07 12-lead ECG Sinus or ectopic atrial tachycardia . RBBB and LAFB . When compared with ECG of 22-Jun-2016 9:28:16, * Heart rate has increased Assessment & Plan Patient is a 76 year old male with a history of a right renal mass, T2DM, HTN, HLD, and a lung mass who presented with somnolence, confusion, and sinus tachycardia status post right partial nephrectomy for the right renal mass. Altered mental status, acute. Improved today - Patient appears slightly somnolent and tachycardic post surgery. There are no focal neurologic signs on exam and CT head was negative, so stroke is less likely. Given his tachycardia, consider PE vs sepsis. His WBC was elevated as well; while this may be a stress reaction, there was a left shift. UA negative. - Lactic acid ordered - BMP ordered - CXR ordered - Blood cultures ordered - Monitor vitals regularly - Continue LR @ 125 ml/hr - Started Zosyn q8h. Tachycardia, acute. Persistent - HR has been 110s to 120s since the surgery this AM. EKG shows sinus tachycardia. He apparently did not reports severe pain last evening but does report severe pain today. Given his hypercoagulable state, recent surgery, and tachycardia, pulmonary embolism is suspect. Lower ext US is ordered. Will defer CT angio to a later time as pt is s/p nephrectomy. If he continues to be tachycardic and his kidney function is normal, consider CT angio chest in the future. However, he likely cannot be placed on warfarin at this time as he is post surgery. - Lower extremity doppler ordered and was negative - We will continue to monitor on telemetry - Consider CT angio chest in future - Troponin ordered - I suspect that the patient's severe pain is a lot to do with his tachycardia. Therefore, we will aggressively control his pain with Percocet and Dilaudid. Lactic acidosis, acute. - Lactic acid trending up despite fluid resuscitation. Possible sepsis with unknown source. Will start Zosyn - We will continue Zosyn q8h Diabetes mellitus, better controlled - Glucose 251. - Ordered A1c - Humalog 3 U with meals and medium dose correctional scale - Lantus 10 U qhs Hyperkalemia improved today - Consider switching from LR to NS - Recheck BMP in AM Hyperlipidemia. - Previously on simvastatin but is no longer taking this medication due to muscle aches. Hypertension - Controlled on lisinopril Pain Evaluation: Adequate Pain Control GI Prophylaxis: Proton Pump Inhibitor VTE Mechanical Devices: Intermittant Pneumatic CD Resuscitation Status: CPR: Attempt Resuscitation Thanh Damon MD Dec 25, 2016 20:19
[2016-12-25] MEDS: Insulin GLARgine 100 Unit/mL Syringe SUBQ SCH (22:22)
--- NOTE | 2016-12-26 02:04 | NUR ---
Pain Patient given full dose of IV push pain medication at beginning of shift, when revisited room, patient was in awake: R- 16, O2- 82% RA. Put him on 1.5L O2 increased to 99%. Plan of action for pain management was to gradually shift to PO meds, however after two hours when checked up on, patient was asleep difficult to arouse and difficult to hold attention. Respirations remained 16 and O2 sats were 96%, pain medications not administered at this time. Patient continues to sleep heavily, Vitals remain stable, no pain medication administered. Bed in low position, call light within reach, intentional rounding.
[2016-12-26] MEDS: oxyCODONE-Acetamin 5-325 mg Tablet PO PRN ×3 (02:45→17:30)
[2016-12-26] MEDS: Lactated Ringer's 1,000 ML IV SCH ×3 (03:16→19:16)
[2016-12-26] MEDS: HYDROmorphone 1 mg/mL Inj IVPUSH PRN (03:40)
[2016-12-26 05:06] VITALS: BP 122/61; PULSE 106; RESP 16; O2SAT 95
[2016-12-26 05:47] LABS: BASOPHILS % (AUTO) 0.2 % (0-3); EOSINOPHILS % (AUTO) 0.5 % (0-5); MONOCYTES % (AUTO) 15.9 % (4-12); Mean Corpuscular Hemoglobin 28.9 pg (27.0-35.0); Mean Corpuscular Volume 90.7 fL (81-100); NEUTROPHILS % (AUTO) 64.2 % (40-74); Platelet Count 235 bil/L (150-400)
[2016-12-26 06:18] LABS: Magnesium 1.6 mg/dL (1.6-2.6)
[2016-12-26] MEDS: Insulin LISPRO 300 Unit/3 mL Inj SUBQ SCH ×4 (08:00→20:51)
[2016-12-26] MEDS: Piper-Tazo 3.375 Gm/50 mL D5W Minibag Plus - Q8H over 4 hrs IV SCH ×4 (08:04→16:14)
[2016-12-26] MEDS: MeTOProlol XL 25 mg ER24 Tablet PO SCH (08:05)
[2016-12-26 08:14] VITALS: BP 118/61; PULSE 117; RESP 18; O2SAT 95
--- NOTE | 2016-12-26 09:37 | PCM.PNSURG ---
Subjective Date of Service: Dec 26, 2016 Date of Service: Dec 26, 2016 Visit Information: Reason for Visit Right Renal Mass Surgery/Surgery Date R OPEN PARTL NEPHRECTOMY 12/24/16 Post-Op Day # 2 Date of Admission: Dec 24, 2016 at 12:02 Hospital Day # 3 Subjective: Mr Hurst states overall he is doing well, but his pain is uncontrolled at times. It seems that the Percocet/IV dilaudid wear off as expected, but the pain medication is working when administered. He has taken steps to the restroom in his room. He has yet to ambulate outside his room. Dumont was replaced yesterday after he was unable to void all day and bladder scan was 375 ml, per nursing. Tolerating clears, but he is ordered for ADAT. Postop General: No Chest Pain Pain Management: PO, IV Push Postop Activity: Ambulating in Room Only Objective Vital Sign- Last 8 Hours Date Time Temp Pulse Resp B/P Pulse Ox O2 Delivery O2 Flow Rate FiO2 12/26/16 08:14 36.7 117 18 118/61 95 Room Air 12/26/16 05:06 36.7 106 16 122/61 95 Room Air Intake and Output- Last 8 Hour 12/26/16 Cumulative From/Thru 07:00 12/20/16 16:19 - 12/26/16 05:05 Intake Total 570 ml 6470 ml Output Total 557 ml 4012 ml Balance 13 ml 2458 ml Intake Oral 570 ml 2090 ml IV Total 4380 ml Output Urine Total 550 ml 3350 ml Drainage Total 7 ml 162 ml Estimated Blood Loss 500 ml # Bowel Movements 0 0 General: Alert, Cooperative, No Acute Distress Abdomen: Benign, Soft, Appropriately tender (wound c/d/i. ROMAN w scant serosanguinous fluid in bulb) Extremities: Warm Neuro: Cranial Nerves 2-12 nl Catheters: Urethral 2 Way Dumont Result Diagram: 12/26/16 0505 12/26/16 0505 Assessment & Plan Impression POD# 2 RIGHT open partial Nx Problems: Plan We reviewed his pain control I discussed with nursing his plan for today - Ambulate in hallways TID - Pain mgt: recommend administering pain medication prior to activity - ROMAN Ramesh DC dumont tomorrow AM If pain controlled tomorrow, [place] planning to home Resuscitation Status: CPR: Attempt Resuscitation Brenda Spaulding MD Dec 26, 2016 09:37
[2016-12-26] MEDS ORDERED: Magnesium Sulf 4 Gm/100 mL H2O 4 GM in IV Premix 1 EACH IV ONE (10:25)
[2016-12-26 12:49] VITALS: PULSE 118
[2016-12-26 13:45] VITALS: BP 101/58; PULSE 109; RESP 18; O2SAT 98
--- NOTE | 2016-12-26 16:43 | NUR ---
Actvity/Fever Pt had fever of 38.1. Gave pt tylenol, instructed him to use his IS 10x/hour every hour, and pt used the IS while I was there. Encouraged pt to get oob and ambulate, and sit in the chair. Pt declined several attempt to get out of the room and walk. Pt did get oob to sit in the chair at bedside. Upon re-assessment pt's temp was 36.9. Will continue to encourage the pt to get oob and ambulate.
--- NOTE | 2016-12-26 16:51 | NUR ---
Blood Sugar Upon morning assessment pts blood sugar was 46. bolt cutter took blood sugar. Pt displayed no s/s of hypoglycemia and was A&Ox3 talking. Pt given high sugar juice and was given breakfast. bolt cutter took blood sugar 15 min later and blood sugar was 136. Oral diabetic medications withheld and Insulin withheld. MD notified and medications were changed. Will continue to monitor.
[2016-12-26 17:04] VITALS: BP 122/62; PULSE 102; RESP 17; O2SAT 98
[2016-12-26 20:08] VITALS: BP 109/72; PULSE 103; RESP 17; O2SAT 94
[2016-12-26] MEDS: Insulin GLARgine 100 Unit/mL Syringe SUBQ SCH (20:51)
--- NOTE | 2016-12-26 21:39 | PCM.PNMED ---
Subjective Date of Service Dec 26, 2016 Subjective The patient has less pain today is beginning to feel little bit better. He has no new complaints. He has not been up out of bed yet since surgery. Exam Vital Signs Vital Sign - Last Date Time Temp Pulse Resp B/P Pulse Ox O2 Delivery O2 Flow Rate FiO2 12/26/16 20:08 36.6 103 17 109/72 94 Room Air 12/24/16 18:46 3.00 Intake and Output 12/25/16 12/25/16 12/26/16 Cumulative From/Thru 15:00 23:00 07:00 12/20/16 16:19 - 12/26/16 05:05 Intake Total 200 ml 845 ml 570 ml 6470 ml Output Total 400 ml 380 ml 557 ml 4012 ml Balance -200 ml 465 ml 13 ml 2458 ml Intake Oral 200 ml 120 ml 570 ml 2090 ml IV Total 725 ml 4380 ml Output Urine Total 400 ml 350 ml 550 ml 3350 ml Drainage Total 30 ml 7 ml 162 ml Estimated Blood Loss 500 ml # Bowel Movements 0 0 Exam General: Patient appears uncomfortable and is not taking deep breaths due to his right lower quadrant pain HEENT: Head is atraumatic and normocephalic. Eyes: Pupils are equally round and reactive to light and accommodation. Extraocular muscles are intact. Sclera are white, anicteric. Subconjunctival mucosa is pink. Ears and nose are unremarkable. Oropharynx: There are no mucosal lesions, there is no thrush , there is no pharyngitis. Neck: Is supple, there are no nodes, or masses or tenderness. Chest: Is clear to auscultation and percussion. There are no rales, rhonchi, wheezes or rubs. However, breath sounds are shallow. Heart: Rate is tachycardic, rhythm is regular. There is no murmur, rub or gallop. Abdomen: Abdomen is quiet. Abdomen is firm, with postoperative incisional tenderness, no organomegaly or masses were appreciated. Incision looks excellent. There is a drain in place and site is unremarkable. There is no crepitance or cellulitis around the incision. There is minimal strikethrough dried drainage on his dressing. Extremities: Are symmetrical and well perfused. There is no edema, there is no cellulitis, no rash. Neurologic: There are no focal neurological deficits. However, patient has proximal muscle weakness. Cranial nerves II through XII are intact. There are no sensory or motor deficits. Psychiatric: Patients mood is calm and shows no sign of agitation. He appears more comfortable. Genital: Deferred Rectal: Deferred Lab and Diagnostics Result Diagram: 12/26/16 0505 12/26/16 0505 Microbiology Cultures from last evening are pending X-Rays, CTs and MRIs PROCEDURE: X-RAY CHEST ONE VIEW, PORTABLE ([id number]) INDICATIONS: Tachycardia, elevated WBC TECHNIQUE: One view of the chest was acquired. COMPARISON: [facility], CT, CT BX LUNG MEDIASTINUM, 08/15/2016, 8: 57. [facility], CT, CT ANGIO CHEST PE, 04/27/2016, 13:19. [facility], CR, XR CHEST 1VW (PORTABLE), 06/15/2016, 12:30. [facility], CR, XR CHEST 1VW (PORTABLE), 08/15/2016, 10:32. [facility] , CR, XR CHEST 2VW, 12/17/2016, 13:02. FINDINGS: Surgical changes and devices: None. Lungs and pleura: No pleural effusions or pneumothorax. Lungs are clear, aside from left mid lung perihilar mass. Segmental atelectasis Basi right lung base. Mediastinum: Mediastinal contours are normal. Heart size is normal. Bones and chest wall: No suspicious bony abnormalities. Soft tissues appear unremarkable. IMPRESSION: Left midlung perihilar mass unchanged over time and there is mild right basilar atelectasis. Dictated by: Wiliam Keating [facility] Interpreted: Bobo Zimmerman MD on 12/25/2016 at 11 :31 Approved by: Bobo Zimmerman M.D. on 12/25/2016 at 16:42 PROCEDURE: US VENOUS LEG DUPLEX BILATERAL INDICATIONS: DVT? TECHNIQUE: Real-time imaging, as well as color and pulse Doppler interrogation, were performed of the deep veins of both legs from the inguinal ligament to the popliteal fossa. COMPARISON: [facility] Ultrasound, US, US RENAL, 10/29/2016, 13:23. FINDINGS: The deep veins are normally compressible, and free of intraluminal thrombus. Color and pulse Doppler demonstrate normal phasic intravascular flow. There is normal augmentation response to distal compression maneuver. IMPRESSION: No sonographic evidence of deep venous thrombus bilaterally. Dictated by: Zoran Taylor M.D. on 12/25/2016 at 6:57 Approved by: Zoran Taylor M.D. on 12/25/2016 at 6:58 PROCEDURE: CT BRAIN WITHOUT CONTRAST ([id number]) INDICATIONS: Decreased mental status TECHNIQUE: Noncontrast 4.5 mm thick angled axial sections acquired from the foramen magnum to the vertex, with coronal reformats. COMPARISON: [facility], MR, MR BRAIN W&WO CON, 06/15/2016, 14:53. FINDINGS: Image quality: Excellent. CSF spaces: Basal cisterns are patent. No extra-axial fluid collections. The ventricles are symmetric in size and shape. Brain: No intracranial bleeds or masses. There is cerebral volume loss for age , with resultant ventricular and sulcal prominence. There are periventricular and deep white matter chronic small vessel ischemic changes. There is intracranial internal carotid artery atherosclerosis. Skull and face: Calvarium and visualized facial bones appear intact, without suspicious lesions. Sinuses: Visualized sinuses and mastoids are clear. IMPRESSION: 1. No acute intracranial process. 2. Moderate atrophy and chronic microvascular ischemic changes. Dictated by: Yomaira Zavala M.D. on 12/24/2016 at 19:07 Approved by: Yomaira Zavala M.D. on 12/24/2016 at 19:07 12-lead ECG Sinus or ectopic atrial tachycardia . RBBB and LAFB . When compared with ECG of 22-Jun-2016 9:28:16, * Heart rate has increased Assessment & Plan Patient is a 76 year old male with a history of a right renal mass, T2DM, HTN, HLD, and a lung mass who presented with somnolence, confusion, and sinus tachycardia status post right partial nephrectomy for the right renal mass. Altered mental status, acute. Improved - Patient appears slightly somnolent and tachycardic post surgery. There are no focal neurologic signs on exam and CT head was negative, so stroke is less likely. Given his tachycardia, consider PE vs sepsis. His WBC was elevated as well; while this may be a stress reaction, there was a left shift. UA negative. - Lactic acid ordered - BMP ordered - CXR ordered - Blood cultures ordered - Monitor vitals regularly - Continue LR @ 125 ml/hr - Started Zosyn q8h. Tachycardia, acute. Persistent - HR has been 110s to 120s since the surgery this AM. EKG shows sinus tachycardia. He apparently did not reports severe pain last evening but does report severe pain today. Given his hypercoagulable state, recent surgery, and tachycardia, pulmonary embolism is suspect. Lower ext US is ordered. Will defer CT angio to a later time as pt is s/p nephrectomy. If he continues to be tachycardic and his kidney function is normal, consider CT angio chest in the future. However, he likely cannot be placed on warfarin at this time as he is post surgery. - Lower extremity doppler ordered and was negative - We will continue to monitor on telemetry - Consider CT angio chest in future - Troponin ordered - I suspect that the patient's severe pain is a lot to do with his tachycardia. Therefore, we will aggressively control his pain with Percocet and Dilaudid. Lactic acidosis, acute. - Lactic acid trended up despite fluid resuscitation. - Possible sepsis with unknown source. - On Zosyn lactic acid is coming down - We will continue Zosyn q8h Diabetes mellitus, better controlled - Patient hypoglycemic this morning. Will discontinue oral diabetic medication. - Ordered A1c and result is still pending - Continue Humalog 3 U with meals and medium dose correctional scale - Continue Lantus 10 U qhs Hyperkalemia improved - Recheck BMP in AM Hyperlipidemia. - Previously on simvastatin but is no longer taking this medication due to muscle aches. Hypertension - Controlled on lisinopril Disposition: Patient will likely go home the next 24-48 hours. Cabrera catheter is to be removed tomorrow. Physical therapy will be consulted. Pain Evaluation: Adequate Pain Control GI Prophylaxis: Proton Pump Inhibitor VTE Mechanical Devices: Intermittant Pneumatic CD Resuscitation Status: CPR: Attempt Resuscitation Thanh Damon MD Dec 26, 2016 21:39
[2016-12-27] VITALS (9 sets, daily range): BP systolic 112–145; BP diastolic 63–88; PULSE 82–128; RESP 16–20; O2SAT 92–98
[2016-12-27] MEDS: Piper-Tazo 3.375 Gm/50 mL D5W Minibag Plus - Q8H over 4 hrs IV SCH ×8 (00:26→22:10)
[2016-12-27] MEDS: oxyCODONE-Acetamin 5-325 mg Tablet PO PRN ×3 (01:45→17:08)
--- NOTE | 2016-12-27 02:44 | NUR ---
tachycardia electronic device monitor reported that pts HR had been trending up and now staying steady in the 120s. pt was checked on and denied any pain. VS normal otherwise. MD notified. when nurse checked on pt again pt did admit that he actually was in quite a bit of pain but did want to take pain medication. nurse explained the different medications available to him and pt agreed to take 2 percocet. pt is sleeping now appearing comfortable. HR is still low 120's. will continue to monitor.
[2016-12-27 04:58] LABS: BASOPHILS % (AUTO) 0.1 % (0-3); EOSINOPHILS % (AUTO) 1.5 % (0-5); MONOCYTES % (AUTO) 12.2 % (4-12); Mean Corpuscular Hemoglobin 28.9 pg (27.0-35.0); Mean Corpuscular Volume 88.6 fL (81-100); Platelet Count 211 bil/L (150-400)
[2016-12-27 05:28] LABS: Magnesium 2.1 mg/dL (1.6-2.6)
[2016-12-27] MEDS: Lactated Ringer's 1,000 ML IV SCH (06:22)
[2016-12-27] MEDS: Insulin LISPRO 300 Unit/3 mL Inj SUBQ SCH ×5 (07:12→22:11)
[2016-12-27] MEDS: MeTOProlol XL 25 mg ER24 Tablet PO SCH (08:11)
--- NOTE | 2016-12-27 11:18 | PCM.PNSURG ---
Subjective Date of Service: Dec 27, 2016 Date of Service: Dec 27, 2016 Visit Information: Reason for Visit Right Renal Mass Surgery/Surgery Date R OPEN PARTL NEPHRECTOMY 12/24/16 Post-Op Day # 3 Date of Admission: Dec 24, 2016 at 12:02 Hospital Day # 4 Subjective: Mr Hurst states he is "sore" at his incision. He hasn't walked outside his room yet. He is tolerating regular diet but isn't really hungry. He hasn't passed flatus yet. His dumont was removed this morning. Pain-bennett, he is doing better, but he feels it could be improved. Pain Management: PO, IV Push Objective Vital Sign- Last 8 Hours Date Time Temp Pulse Resp B/P Pulse Ox O2 Delivery O2 Flow Rate FiO2 12/27/16 08:29 36.7 82 16 142/77 98 Room Air 12/27/16 08:16 Supplement Oxygen 12/27/16 08:08 36.8 107 18 145/75 95 Room Air 12/27/16 05:20 36.4 99 17 112/64 92 Room Air 12/27/16 03:56 104 Intake and Output- Last 8 Hour 12/27/16 Cumulative From/Thru 06:59 12/20/16 16:19 - 12/27/16 05:53 Intake Total 2670 ml 96891 ml Output Total 2860 ml 8382 ml Balance -190 ml 2201 ml Intake Oral 2020 ml 5260 ml IV Total 650 ml 5323 ml Output Urine Total 2850 ml 7700 ml Drainage Total 10 ml 182 ml Estimated Blood Loss 500 ml # Bowel Movements 0 General: Alert, Cooperative, No Acute Distress (sitting in chair) Abdomen: Soft, Appropriately tender (wound is healing well. ROMAN w minimal serosanguinous output) Extremities: Warm Neuro: Cranial Nerves 2-12 nl Catheters: None Result Diagram: 12/27/16 0442 12/27/16 0442 Assessment & Plan Impression POD# 3 RIGHT open partial Nx Problems: Plan ROMAN drain removed today We discussed his discharge planning - We talked about DC home today, though he doesn't feel ready, and I think that' s reasonable - We reviewed DC home tomorrow, and he states he would prefer that We discussed wound care - Showers ok - No submersions We reviewed activity restrictions We talked about his pain mgt plan Very much appreciate hospitalist evaluation for his acute postop problems. Dispo: - DC planning tomorrow Resuscitation Status: CPR: Attempt Resuscitation Brenda Spaulding MD Dec 27, 2016 11:18
--- NOTE | 2016-12-27 13:52 | DRSVH ---
PROCEDURE: CT ANGIO CHEST PULMONARY EMBOLISM ([id number]) INDICATIONS: Tachycardia after surgery/Possible PE TECHNIQUE: After the administration of intravenous contrast, 2 mm thick sections acquired from the pulmonary api ana to the posterior costophrenic angles. 3-dimensional maximum intensity projection (MIP) coronal a nd sagittal reformats were then acquired through the thorax. For radiation dose reduction, the follo wing was used: automated exposure control, adjustment of mA and/or kV according to patient size. COMPARISON: [facility], [place], PET NECK TO MID THIGH STD, 07/16/2016, 8:47. [facility], CR, XR CHEST 2VW, 12/17/2016, 13:02. [facility], CR, XR CHEST 1VW (PORTABLE), , 21:32. [facility], CT, CT ANGIO CHEST PE, 06/22/2016, 7:55. FINDINGS: Image quality: Excellent. Pulmonary arteries: Pulmonary arteries are normal in size, and demonstrate no intraluminal filling d efects to suggest central pulmonary embolism. Lungs and pleura: There is small right pleural effusion and right lower lobe atelectasis. Trace left basilar atelectasis. A 1.4 cm nodule is seen in the anterior aspect of lingula, unchanged in size fro m 06/22/2016. No pleural effusions or pneumothorax. Central and peripheral airways are patent. Mediastinum: Heart size is normal, without pericardial effusion. No mediastinal or hilar adenopathy . Thoracic aorta is normal in caliber and enhancement. Esophagus is normal in caliber. There is a s mall hiatal hernia. Bones and chest wall: No suspicious bony lesions. Ribs and thoracic spine appear intact throughout. Thyroid gland is normal. No axillary or supraclavicular adenopathy. Abdomen: There are small gallstones. Visualized upper abdominal solid organs appear normal in the ea rly arterial phase of enhancement. IMPRESSION: 1. No evidence for central pulmonary embolism. 2. Small right pleural effusion with right basilar atelectasis. 3. Stable 1.0 cm anterior lingula nodule. 4. Cholelithiasis. Dictated by: Koffi Carvalho M.D. on 12/27/2016 at 13:42 Approved by: Koffi Carvalho M.D. on 12/27/2016 at 13:49
--- NOTE | 2016-12-27 14:38 | NUR ---
Social Work- Initial Assessment/ Readiness for Discharge Data: See Initial Assessment. Pt is a 76 year old male admitted 12/24/16 for right renal mass per H&P. Pt is s/p partial nephrectomy. Nephrology and Urology are following. Pt is not medically stable for discharge, anticipate 1-2 more days. Pt's insurance is [employer] [facility] and PCP is Servando Gomez MD. Pt's NOK is Kayy Hurst, , . SW met with pt, , and daughter at bedside regarding discharge plan, SW role explained. Pt alert and oriented x3. Pt resides in [place] with his in a single story home with one step to enter. Pt is independent with ADLs. Pt uses no DME in his home but has a cane for ambulation outside and an electric wheelchair for long distances. Pt does not drive. Pt has no HH or SNF history. Pt has no LTC or VA benefits. Pt has DPOA paperwork at bedside but none on file. Pt has not been out of bed much this admission, [employer] recommends RN ambulate pt in room as tolerated and pt may benefit from PT evaluation. No PT evaluation has been ordered at this time. Pt anticipated to discharge home with to transport via POV, SW to R/O HH services prior to discharge. SW will continue to follow. Assessment: Pt who is independent at baseline but who has not been ambulating much during this admission and may benefit from HH services at MD discretion. Plan: Pt has not been out of bed much this admission, [employer] recommends RN ambulate pt in room as tolerated and pt may benefit from PT evaluation. No PT evaluation has been ordered at this time. Pt anticipated to discharge home with to transport via POV, SW to R/O HH services prior to discharge. SW will continue to follow. ISMAEL De Jesus Addendum: 12/27/16 at 1440 by GATO RIVERA Amended: Links added.
--- NOTE | 2016-12-27 17:12 | NUR ---
Dumont Removed dumont at 0800. Pt voided 225 at 1220 with PVR of 434. MD notified and orders received to replace dumont. Dumont catheter replaced and draining to gravity.
--- NOTE | 2016-12-27 17:14 | NUR ---
Education/Pain Pt continues to say his pain is okay. Upon further assessment pain is rated 6/10. Encouraged pt to take pain medication if he is in pain. Educated pt on the importance of getting oob, coughing and deep breathing. Pt was oob to the bedside chair for breakfast. Encouraged to get oob for dinner. Reminded pt to use IS. Educated pt on use of IS. Care continues.
[2016-12-27] MEDS: Insulin GLARgine 100 Unit/mL Syringe SUBQ SCH (22:10)
--- NOTE | 2016-12-27 22:23 | PCM.PNMED ---
Subjective Date of Service Dec 27, 2016 Subjective The patient continues to have considerable postoperative pain. He has yet to be out of bed with physical therapy. He complains of proximal muscle weakness. He has no other new complaints. Exam Vital Signs Vital Sign - Last Date Time Temp Pulse Resp B/P Pulse Ox O2 Delivery O2 Flow Rate FiO2 12/27/16 20:25 36.9 99 20 112/63 95 Room Air 12/24/16 18:46 3.00 Intake and Output 12/26/16 12/26/16 12/27/16 Cumulative From/Thru 15:00 23:00 07:00 12/20/16 16:19 - 12/27/16 05:53 Intake Total 165 ml 1278 ml 2670 ml 02911 ml Output Total 1510 ml 2860 ml 8382 ml Balance 165 ml -232 ml -190 ml 2201 ml Intake Oral 1150 ml 2020 ml 5260 ml IV Total 165 ml 128 ml 650 ml 5323 ml Output Urine Total 1500 ml 2850 ml 7700 ml Drainage Total 10 ml 10 ml 182 ml Estimated Blood Loss 500 ml # Bowel Movements 0 Exam General: Patient appears comfortable when he lies still in bed. However with any movement he is in pain. HEENT: Head is atraumatic and normocephalic. Eyes: Pupils are equally round and reactive to light and accommodation. Extraocular muscles are intact. Sclera are white, anicteric. Subconjunctival mucosa is pink. Ears and nose are unremarkable. Oropharynx: There are no mucosal lesions, there is no thrush , there is no pharyngitis. Neck: Is supple, there are no nodes, or masses or tenderness. Chest: Is clear to auscultation and percussion. There are no rales, rhonchi, wheezes or rubs. However, breath sounds are shallow. Heart: Rate is tachycardic, rhythm is regular. There is no murmur, rub or gallop. Abdomen: Abdomen is quiet. Abdomen is firm, with postoperative incisional tenderness, no organomegaly or masses were appreciated. Incision looks excellent. The drain has been removed There is no crepitance or cellulitis around the incision. The dressing has been removed Extremities: Are symmetrical and well perfused. There is no edema, there is no cellulitis, no rash. Neurologic: There are no focal neurological deficits. However, the patient has proximal muscle weakness. Cranial nerves II through XII are intact. There are no sensory or motor deficits. Psychiatric: Patients mood is calm and shows no sign of agitation. He appears more comfortable. Genital: Deferred Rectal: Deferred Lab and Diagnostics Result Diagram: 12/27/16 0442 12/27/16 0442 Microbiology Cultures from last evening are pending X-Rays, CTs and MRIs PROCEDURE: X-RAY CHEST ONE VIEW, PORTABLE ([id number]) INDICATIONS: Tachycardia, elevated WBC TECHNIQUE: One view of the chest was acquired. COMPARISON: [facility], CT, CT BX LUNG MEDIASTINUM, 08/15/2016, 8: 57. [facility], CT, CT ANGIO CHEST PE, 04/27/2016, 13:19. [facility], CR, XR CHEST 1VW (PORTABLE), 06/15/2016, 12:30. [facility], CR, XR CHEST 1VW (PORTABLE), 08/15/2016, 10:32. [facility] , CR, XR CHEST 2VW, 12/17/2016, 13:02. FINDINGS: Surgical changes and devices: None. Lungs and pleura: No pleural effusions or pneumothorax. Lungs are clear, aside from left mid lung perihilar mass. Segmental atelectasis Basi right lung base. Mediastinum: Mediastinal contours are normal. Heart size is normal. Bones and chest wall: No suspicious bony abnormalities. Soft tissues appear unremarkable. IMPRESSION: Left midlung perihilar mass unchanged over time and there is mild right basilar atelectasis. Dictated by: Wiliam Keating [facility] Interpreted: Bobo Zimmerman MD on 12/25/2016 at 11 :31 Approved by: Bobo Zimmerman M.D. on 12/25/2016 at 16:42 PROCEDURE: US VENOUS LEG DUPLEX BILATERAL INDICATIONS: DVT? TECHNIQUE: Real-time imaging, as well as color and pulse Doppler interrogation, were performed of the deep veins of both legs from the inguinal ligament to the popliteal fossa. COMPARISON: [facility] Ultrasound, US, US RENAL, 10/29/2016, 13:23. FINDINGS: The deep veins are normally compressible, and free of intraluminal thrombus. Color and pulse Doppler demonstrate normal phasic intravascular flow. There is normal augmentation response to distal compression maneuver. IMPRESSION: No sonographic evidence of deep venous thrombus bilaterally. Dictated by: Zoran Taylor M.D. on 12/25/2016 at 6:57 Approved by: Zoran Taylor M.D. on 12/25/2016 at 6:58 PROCEDURE: CT BRAIN WITHOUT CONTRAST ([id number]) INDICATIONS: Decreased mental status TECHNIQUE: Noncontrast 4.5 mm thick angled axial sections acquired from the foramen magnum to the vertex, with coronal reformats. COMPARISON: [facility], MR, MR BRAIN W&WO CON, 06/15/2016, 14:53. FINDINGS: Image quality: Excellent. CSF spaces: Basal cisterns are patent. No extra-axial fluid collections. The ventricles are symmetric in size and shape. Brain: No intracranial bleeds or masses. There is cerebral volume loss for age , with resultant ventricular and sulcal prominence. There are periventricular and deep white matter chronic small vessel ischemic changes. There is intracranial internal carotid artery atherosclerosis. Skull and face: Calvarium and visualized facial bones appear intact, without suspicious lesions. Sinuses: Visualized sinuses and mastoids are clear. IMPRESSION: 1. No acute intracranial process. 2. Moderate atrophy and chronic microvascular ischemic changes. Dictated by: Yomaira Zavala M.D. on 12/24/2016 at 19:07 Approved by: Yomaira Zavala M.D. on 12/24/2016 at 19:07 PROCEDURE: CT ANGIO CHEST PULMONARY EMBOLISM ([id number]) INDICATIONS: Tachycardia after surgery/Possible PE TECHNIQUE: After the administration of intravenous contrast, 2 mm thick sections acquired from the pulmonary apices to the posterior costophrenic angles. 3-dimensional maximum intensity projection (MIP) coronal and sagittal reformats were then acquired through the thorax. For radiation dose reduction, the following was used: automated exposure control, adjustment of mA and/or kV according to patient size. COMPARISON: [facility], NM, PET NECK TO MID THIGH STD, 07/16/2016, 8 :47. [facility], CR, XR CHEST 2VW, 12/17/2016, 13:02. [facility], CR, XR CHEST 1VW (PORTABLE), 12/24/2016, 21:32. [facility], CT, CT ANGIO CHEST PE, 06/22/2016, 7:55. FINDINGS: Image quality: Excellent. Pulmonary arteries: Pulmonary arteries are normal in size, and demonstrate no intraluminal filling defects to suggest central pulmonary embolism. Lungs and pleura: There is small right pleural effusion and right lower lobe atelectasis. Trace left basilar atelectasis. A 1.4 cm nodule is seen in the anterior aspect of lingula, unchanged in size from 06/22/2016. No pleural effusions or pneumothorax. Central and peripheral airways are patent. Mediastinum: Heart size is normal, without pericardial effusion. No mediastinal or hilar adenopathy. Thoracic aorta is normal in caliber and enhancement. Esophagus is normal in caliber. There is a small hiatal hernia. Bones and chest wall: No suspicious bony lesions. Ribs and thoracic spine appear intact throughout. Thyroid gland is normal. No axillary or supraclavicular adenopathy. Abdomen: There are small gallstones. Visualized upper abdominal solid organs appear normal in the early arterial phase of enhancement. IMPRESSION: 1. No evidence for central pulmonary embolism. 2. Small right pleural effusion with right basilar atelectasis. 3. Stable 1.0 cm anterior lingula nodule. 4. Cholelithiasis. Dictated by: Koffi Carvalho M.D. on 12/27/2016 at 13:42 Approved by: Koffi Carvalho M.D. on 12/27/2016 at 13:49 12-lead ECG Sinus or ectopic atrial tachycardia . RBBB and LAFB . When compared with ECG of 22-Jun-2016 9:28:16, * Heart rate has increased Assessment & Plan Patient is a 76 year old male with a history of a right renal mass, T2DM, HTN, HLD, and a lung mass who presented with somnolence, confusion, and sinus tachycardia status post right partial nephrectomy for the right renal mass. Altered mental status, acute. Improved - Patient appears slightly somnolent and tachycardic post surgery. There are no focal neurologic signs on exam and CT head was negative, so stroke is less likely. Given his tachycardia, consider PE vs sepsis. His WBC was elevated as well; while this may be a stress reaction, there was a left shift. UA negative. - Lactic acid initially elevated postoperatively has now normalized - Blood cultures negative to date - Monitor vitals regularly - Continue LR deduce from 125 ml/hr to 80 mL an hour - Continue Zosyn IV q8h. for now Tachycardia, acute. Persistent - HR has been 110s to 120s since the surgery this AM. EKG shows sinus tachycardia. He apparently did not reports severe pain last evening but does report severe pain today. Given his hypercoagulable state, recent surgery, and tachycardia, pulmonary embolism is suspect. Lower ext US was ordered and was negative. A CT angiogram was ordered today and was negative for pulmonary embolism - Lower extremity doppler ordered and was negative - We will continue to monitor on telemetry - Troponin was negative and patient has no chest pain. - I suspect that the patient's severe pain is a lot to do with his tachycardia. Therefore, we will continue to aggressively control his pain with Percocet and Dilaudid.. Lactic acidosis, acute. - Lactic acid trended up despite fluid resuscitation. A lactic acid is now normalized - Possible sepsis with unknown source. - On Zosyn the lactic acid is coming down. - We will continue Zosyn q8h Diabetes mellitus, better controlled - Patient hypoglycemic this morning. Will discontinue oral diabetic medication. - Hemoglobin A1c was 6.5 - Continue Humalog 3 U with meals and medium dose correctional scale - Continue Lantus 10 U qhs Hyperkalemia improved - Recheck BMP in AM Hyperlipidemia. - Previously on simvastatin but is no longer taking this medication due to muscle aches. Hypertension - Controlled on lisinopril Disposition: Patient will likely go home the next 24-48 hours. Cabrera catheter is to be removed. Physical therapy has been consulted. Pain Evaluation: Adequate Pain Control GI Prophylaxis: Proton Pump Inhibitor VTE Mechanical Devices: Intermittant Pneumatic CD Resuscitation Status: CPR: Attempt Resuscitation Thanh Damon MD Dec 27, 2016 22:23 Thanh Damon MD Dec 27, 2016 22:23
[2016-12-28 00:04] VITALS: BP 133/70; PULSE 107; RESP 18; O2SAT 94
[2016-12-28] MEDS: Ondansetron 2 mg/mL 2 mL Inj IVPUSH PRN (01:29)
[2016-12-28] MEDS: oxyCODONE-Acetamin 5-325 mg Tablet PO PRN ×2 (01:30→11:20)
--- NOTE | 2016-12-28 04:19 | NUR ---
Pain/Activity Pt reports his pain is ok, encouraged him to rate his pain on when he moves not when lying still as he kept on sating "when Im lying here Im fine", Pt admitted when he got up and when changing positions alana this pain was 8/10. Accepted offer of percocet with + effects. Pt also had episode of nausea and had + effects with zofran. Pt up to BR with steady gait and had large BM. Reminded Pt to use incentive spirometer. Call light in reach, bed in low position. Care continues
[2016-12-28 05:20] VITALS: BP 101/61; PULSE 83; RESP 20; O2SAT 98
[2016-12-28 05:39] LABS: BASOPHILS % (AUTO) 0.2 % (0-3); EOSINOPHILS % (AUTO) 3.6 % (0-5); Mean Corpuscular Hemoglobin 28.6 pg (27.0-35.0); Mean Corpuscular Volume 88.9 fL (81-100); NEUTROPHILS % (AUTO) 64.9 % (40-74); Platelet Count 269 bil/L (150-400)
[2016-12-28 05:52] LABS: Magnesium 1.9 mg/dL (1.6-2.6)
[2016-12-28] MEDS: Piper-Tazo 3.375 Gm/50 mL D5W Minibag Plus - Q8H over 4 hrs IV SCH ×2 (06:22)
[2016-12-28 08:00] VITALS: PULSE 98
[2016-12-28] MEDS: Insulin LISPRO 300 Unit/3 mL Inj SUBQ SCH ×2 (08:33→13:16)
[2016-12-28] MEDS: MeTOProlol XL 25 mg ER24 Tablet PO SCH (08:35)
[2016-12-28 08:44] VITALS: BP 132/66; PULSE 108; RESP 18; O2SAT 98
--- NOTE | 2016-12-28 10:45 | CONS ---
[address] [address] CONSULTATION REPORT PATIENT: SHIVAM HURST : 1940 MR#: [id number] ADMIT: 12/24/2016 JOB ID: [id number] DATE OF SERVICE: 12/28/2016 CARDIOLOGY CONSULTATION: CHIEF COMPLAINT: Weakness. 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 He is here and recovering after resection of renal cell cancer. The surgery was successful. He has no complaints referable to his heart, however, he reports ongoing discomfort in the legs when he walks. He has had extensive evaluation including outpatient aldolase which was normal. He had outpatient consultation with a vascular surgeon, Dr. Medina. 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 Medina was not convinced that his symptoms were connected to his peripheral arterial disease. He did not believe the patient was at risk for limb loss and as a result he did not offer him surgical revascularization. The patient says that he can barely walk because his legs feel weak. 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 PAST MEDICAL HISTORY: 1. Diabetes, diagnosed over 10 years ago, controlled. Most recent hemoglobin A1c is 6/5% as of October 2016. 2. Hyperlipidemia. Controlled; most recent lipid panel 02/17/2016 showed tc 160 tg 65 hdl 86 ldl 61 3. Kidney stones. 4. Hypertension, controlled on lisinopril. 5. Lung mass. This problem came to medical attention in November 2015 and did not resolve with medical therapy. CT guided biopsy demonstrated benign tissue. 6. Peripheral neuropathy. Nerve conduction study and EMG performed 10/12/2016 at showed axonal sensorimotor peripheral neuropathy. No evidence of myopathy 7. 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 Vitamin B 12 deficiency. In the past treated with B12 shots. Most recent available B12 level was 268 as of May 2012. 8. Right bundle branch block SOCIAL HISTORY: Patient chews tobacco. He does not smoke. FAMILY HISTORY: No history of autoimmune disease or lung disease. HOME MEDICATIONS: 1. Aspirin 325 mg daily. 2. Lipitor 20 mg daily 3. Lisinopril/HCTZ 20/12.5 one tablet daily. 3. Metformin 1 g twice a day. 4. Lantus 10 units subcu daily. 5. Glimepiride 4 mg twice a day. 6. Tamsulosin 0.4 mg daily 7. Triazolam 0.25 mg qhs prn 8. prn percoset 9. prn nitro REVIEW OF SYSTEMS: Significant for muscle weakness in both legs, headaches, dizziness, known sensation of spinning, chest pain which is worse with deep inspiration and is not exertional, dyspnea on exertion which is stable. He reports no cough, no wheezing. No lower extremity edema. No fevers, no chills. EXAM: Shivam Hurst [id number] 1940 07/31/2016 11:00 AM 07/06 Constitutional Normal Well Nourished. Well developed. Eyes Normal Lids/external - Right: Normal, Left: Normal. Conjunctiva - Right: Normal, Left: Normal. Nose/Mouth/Throat Comments Oral Mucosa- Moist, No Cyanosis, No Pallor Neck Exam Comments JVP- less then 8. Respiratory Comments Respirations - Nonlabored. Breath sounds- Clear Throughout. Rales- Absent. Rhonchi- Absent. Wheezes- Absent Vascular Comments Aorta- Normal Size. Vascular Normal Pulses - Carotids: Normal, Femoral: Normal, Posterior tibial: Normal. Bruits - Carotids: Absent, Femoral: Absent. Abdomen Comments Hepatomegaly- Absent. Splenomegaly- Absent. Cardiovascular Normal Rhythm - Regular. Heart sounds - Normal S1, Normal S2. Extra sounds - None. Murmurs - None. Extremities - No edema. Abdomen Normal CVA tenderness - None. Skin Comments Venous Stasis Ulcers- Absent Laboratory and Radiology review: CK 933 troponin wnl normal echo and stress test 07/2016 abnormal vascular study with 50-99% b/l [employer] stenosis with right [employer] velocity > 393 cm/sec. Pt was seen by Dr. Medina, but he declined surgical revascularization because he did not see a connection between symptoms of weakness and PAD. The plan for this patient is to refer him to a local surgeon, Dr. Gomez, and see if maybe he would offer him surgical revascularization on his right leg which is bothering him more than the left leg, and perhaps that will give him some relief of his leg weakness. I put the order in the computer and communicated with my staff about it. As far as elevated CK, this could be post operative. It may represent statin myopathy. This medicine was initiated in 07/2016. Will go ahead an stop Lipitor Thank you very much for the opportunity to evaluate him. GEETHAD
--- NOTE | 2016-12-28 11:32 | PCM.PNSURG ---
Subjective Date of Service: Dec 28, 2016 Date of Service: Dec 28, 2016 Visit Information: Reason for Visit Right Renal Mass Surgery/Surgery Date R OPEN PARTL NEPHRECTOMY 12/24/16 Post-Op Day # 4 Date of Admission: Dec 24, 2016 at 12:02 Hospital Day # Subjective: Mr Hurst is doing well overall. His pain is improved. He is ambulating. He is tolerating diet w/o n/v. Postop General: No Complaints Pain Management: PO Postop Activity: Ambulating Independently Objective Vital Sign- Last 8 Hours Date Time Temp Pulse Resp B/P Pulse Ox O2 Delivery O2 Flow Rate FiO2 12/28/16 08:44 36.8 108 18 132/66 98 Room Air 12/28/16 08:00 98 12/28/16 05:20 36.7 83 20 101/61 98 Room Air Intake and Output- Last 8 Hour 12/28/16 Cumulative From/Thru 07:00 12/20/16 16:19 - 12/28/16 06:33 Intake Total 575 ml 83767 ml Output Total 1850 ml 12956 ml Balance -1275 ml 9 ml Intake Oral 500 ml 6633 ml IV Total 75 ml 5558 ml Output Urine Total 1850 ml 46031 ml Drainage Total 182 ml Estimated Blood Loss 500 ml # Bowel Movements 0 General: Alert, Cooperative, No Acute Distress Abdomen: Benign, Soft, Appropriately tender (wound is c/d/i, healing well) Extremities: Warm Neuro: Cranial Nerves 2-12 nl Catheters: None Result Diagram: 12/28/16 0511 12/28/16 0511 Assessment & Plan Impression POD#4 RIGHT open partial Nx Problems: Plan We reviewed his pathology - Papillary RCC - Negative margins We talked about his discharge instructions - Activity - Restrictions - Wound care We reviewed his follow-up plan - RTC 2 wks Dispo: - DC home today Resuscitation Status: CPR: Attempt Resuscitation Brenda Spaulding MD Dec 28, 2016 11:32
--- NOTE | 2016-12-28 11:34 | PCM.DISURG ---
Surgical Discharge Instruction Date of Service Dec 28, 2016 Dates of Hospitalization Date of Hospital Admission Dec 24, 2016 at 12:02 Providers Admitting Physician: Brenda Spaulding MD Primary Care Physician: Servando Gomez MD Attending Physician: Brenda Spaulding MD Discharge Diagnosis Discharge Diagnosis Renal cell cancer Post Operative diagnosis Renal cell cancer Diet Discharge Diet: Diabetic Activity Discharge Activity-General: Balance rest and activity, No lifting >10 pounds for 4-6 weeks Dressing and Incisional Care Hygiene: May shower, DO NOT soak incision under water Follow Up Plan Follow Up Plan 2 wks Brenda Spaulding MD Dec 28, 2016 11:34
--- NOTE | 2016-12-28 11:40 | PCM.DC.SUR ---
Discharge Summary Date of Service: Dec 28, 2016 Date of Hospital Admission: Dec 24, 2016 at 12:02 Date of Operation(s): 12/24/16 Date of Discharge: 12/28/16 Diagnosis at Time of Discharge Renal cell carcinoma, papillary Problems: Operation RIGHT open partial nephrectomy Brief History and Physical: 76 M with RIGHT renal mass, underwent uneventful RIGHT open partial nephrectomy. Postop, he developed sinus tachycardia, increasing O2 demand, and appeared somnolent. He had evaluation with consultation by hospitalist service that included labs, EKG, head CT, and US of BLE. Evaluation was negative for significant findings. He recovered otherwise uneventfully. By discharge, he was passing flatus, at his baseline ambulation, and pain was controlled while tolerating nutrition by mouth. Consultants: Hospitalist Hospital Course: Per history. Pathology: Renal cell carcinoma, papillary Disposition: Home Follow-up Plan: 2 weeks Atorvastatin (Lipitor) 20 Mg Tablet 20 MG PO DAILY (Reported) Gabapentin (Gabapentin) 300 Mg Capsule 300 MG PO BID (Reported) Glimepiride (Glimepiride) 4 Mg Tablet 4 MG PO BID (Reported) Hydrocodone-Acetaminophen 5-325 mg (Hydrocodone-Acetaminophen 5-325 mg) 1 Each Tablet 1 TABLET PO Q10H PRN PRN For Pain (Reported) Lisinopril / HCTZ 20-12.5 mg (Lisinopril / HCTZ 20-12.5 mg) 1 Each Tablet 1 EACH PO DAILY (Reported) Metformin (Glucophage) 1,000 Mg Tablet 1,000 MG PO BID (Reported) Metoprolol Succinate ER (Metoprolol Succinate ER) 25 Mg Tab.er.24h 25 MG PO DAILY (Reported) Nitroglycerin SL (Nitroglycerin SL) 0.4 Mg Tab.subl 0.4 MG SL (Reported) Triazolam (Triazolam) 0.125 Mg Tablet 0.125 MG PO HS PRN PRN Insomnia (Reported ) Brenda Spaulding MD Dec 28, 2016 11:40
--- NOTE | 2016-12-28 13:25 | NUR ---
Dumont/Discharge MD discharge note did not include the plan with patient's dumont catheter. Paged Dr. Spaulding. Awaiting answer on plan. Completed other discharge paperwork. Addendum: 12/28/16 at 1402 by TEE DURAN RN Paged [facility], about discharge and need for dumont catheter plan. Awaiting call.
--- NOTE | 2016-12-28 14:18 | NUR ---
Social Work: Readiness for Discharge D: EMR reviewed. Pt is on day 4 of hospitalization. Per MD in AM multi-disciplinary rounds, pt is medically stable and will discharge today. [facility] received MD order for HH PT 3x/week for 4 weeks. SW met with pt and family and discussed HH. SW provided HH choice list. Pt and family chose [facility]. SW placed T/C to [facility] from [facility] and confirmed referral. SW confirmed pt would be discharging today and SW will fax F2F once completed and signed by MD. SW updated pt and family on when [facility] will make contact to schedule PT visits (normally the day after discharge - tomorrow). Pt and family agreeable to plan. Pt's spouse to provide transport home via POV today. Pt to discharge home and open with [facility] for PT 3x/week up to 4 weeks per MD. SW will continue to follow for needs and update note once F2F has been faxed and receipt confirmed. A: Pt for whom PT 3x/week up to 4 weeks has been deemed medically necessary by MD. P: Pt's spouse to provide transport home via POV today. Pt to discharge home and open with [facility] for PT 3x/week up to 4 weeks per MD. SW will continue to follow for needs and update note once F2F has been faxed and receipt confirmed. ISMAEL Hoff
[2016-12-28] MEDS ORDERED: CEFD300C3 PO (15:03)
[2016-12-28] MEDS ORDERED: INSLIS SUBQ (15:03)
[2016-12-28] MEDS ORDERED: TAMS0.4C98 PO (15:03)
[2016-12-28] MEDS ORDERED: INSU100V7 SUBQ (15:03)
--- NOTE | 2016-12-28 16:58 | NUR ---
Social Work: Discharge D: EMR reviewed. Pt is on day 4 of hospitalization. Pt to discharge home and open with [facility] for PT/OT 3x/week up to 4 weeks per MD. Pt to transport home with spouse via POV. SW faxed F2F and confirmed receipt to [facility]. SW will continue to follow for needs. A: Pt for whom HH PT OT 3x/week up to 4 weeks has been deemed medically necessary by MD. P: Pt's spouse to provide transport home via POV today. Pt to discharge home and open with [facility] for PT OT 3x/week up to 4 weeks per MD. SW will continue to follow for needs. ISMAEL Hoff
--- NOTE | 2016-12-28 17:22 | NUR ---
Discharge Patient discharged home with and was taken out in a wheel chair by TECHNICAL SERVICES ANALYST. Personal belongings accompanied patient. Discharge information given to patient and . Went over follow up appointments and voiding trial. Educated patient on new medications, catheter care, and how to change out leg bag to overnight bag. Patient and verbalized their understanding of catheter care and the new medications.
--- NOTE | 2016-12-29 02:00 | PCM.PNMED ---
Subjective Date of Service December 28, 2016 Subjective Patient is passing flatus and was able to ambulate with physical therapy around his bed and then with occupational therapy out into the hallway with his walker. Patient continues to complain of some proximal muscle weakness but overall is feeling better. He has no new complaints. His pain is controlled. Exam Vital Signs Vital Sign - Last Date Time Temp Pulse Resp B/P Pulse Ox O2 Delivery O2 Flow Rate FiO2 12/28/16 08:44 36.8 108 18 132/66 98 Room Air 12/24/16 18:46 3.00 Intake and Output 12/28/16 12/28/16 12/29/16 Cumulative From/Thru 15:00 23:00 07:00 12/20/16 16:19 - 12/28/16 07:20 Intake Total 00945 ml Output Total 48279 ml Balance 9 ml Intake Oral 6633 ml IV Total 5558 ml Output Urine Total 21493 ml Drainage Total 182 ml Estimated Blood Loss 500 ml # Bowel Movements 0 Exam General: Patient appears comfortable when he lies still in bed. However with any movement he is in pain. HEENT: Head is atraumatic and normocephalic. Eyes: Pupils are equally round and reactive to light and accommodation. Extraocular muscles are intact. Sclera are white, anicteric. Subconjunctival mucosa is pink. Ears and nose are unremarkable. Oropharynx: There are no mucosal lesions, there is no thrush , there is no pharyngitis. Neck: Is supple, there are no nodes, or masses or tenderness. Chest: Is clear to auscultation and percussion. There are no rales, rhonchi, wheezes or rubs. However, breath sounds are shallow. Heart: Rate is tachycardic, rhythm is regular. There is no murmur, rub or gallop. Abdomen: Abdomen is quiet. Abdomen is firm, with postoperative incisional tenderness, no organomegaly or masses were appreciated. Incision looks excellent. The drain has been removed There is no crepitance or cellulitis around the incision. The dressing has been removed Extremities: Are symmetrical and well perfused. There is no edema, there is no cellulitis, no rash. Neurologic: There are no focal neurological deficits. However, the patient has proximal muscle weakness. Cranial nerves II through XII are intact. There are no sensory or motor deficits. Psychiatric: Patients mood is calm and shows no sign of agitation. He appears more comfortable. Genital: Deferred Rectal: Deferred Lab and Diagnostics Result Diagram: 12/28/16 0511 12/28/16 05 Microbiology Cultures from last evening are pending X-Rays, CTs and MRIs PROCEDURE: X-RAY CHEST ONE VIEW, PORTABLE ([id number]) INDICATIONS: Tachycardia, elevated WBC TECHNIQUE: One view of the chest was acquired. COMPARISON: [facility], CT, CT BX LUNG MEDIASTINUM, 08/15/2016, 8: 57. [facility], CT, CT ANGIO CHEST PE, 04/27/2016, 13:19. [facility], CR, XR CHEST 1VW (PORTABLE), 06/15/2016, 12:30. [facility], CR, XR CHEST 1VW (PORTABLE), 08/15/2016, 10:32. [facility] , CR, XR CHEST 2VW, 12/17/2016, 13:02. FINDINGS: Surgical changes and devices: None. Lungs and pleura: No pleural effusions or pneumothorax. Lungs are clear, aside from left mid lung perihilar mass. Segmental atelectasis Basi right lung base. Mediastinum: Mediastinal contours are normal. Heart size is normal. Bones and chest wall: No suspicious bony abnormalities. Soft tissues appear unremarkable. IMPRESSION: Left midlung perihilar mass unchanged over time and there is mild right basilar atelectasis. Dictated by: [facility] Interpreted: Bobo Zimmerman MD on 12/25/2016 at 11 :31 Approved by: Bobo Zimmerman M.D. on 12/25/2016 at 16:42 PROCEDURE: US VENOUS LEG DUPLEX BILATERAL INDICATIONS: DVT? TECHNIQUE: Real-time imaging, as well as color and pulse Doppler interrogation, were performed of the deep veins of both legs from the inguinal ligament to the popliteal fossa. COMPARISON: [facility], US, US RENAL, 10/29/2016, 13:23. FINDINGS: The deep veins are normally compressible, and free of intraluminal thrombus. Color and pulse Doppler demonstrate normal phasic intravascular flow. There is normal augmentation response to distal compression maneuver. IMPRESSION: No sonographic evidence of deep venous thrombus bilaterally. Dictated by: Zoran Taylor M.D. on 12/25/2016 at 6:57 Approved by: Zoran Taylor M.D. on 12/25/2016 at 6:58 PROCEDURE: CT BRAIN WITHOUT CONTRAST ([id number]) INDICATIONS: Decreased mental status TECHNIQUE: Noncontrast 4.5 mm thick angled axial sections acquired from the foramen magnum to the vertex, with coronal reformats. COMPARISON: [facility], MR, MR BRAIN W&WO CON, 06/15/2016, 14:53. FINDINGS: Image quality: Excellent. CSF spaces: Basal cisterns are patent. No extra-axial fluid collections. The ventricles are symmetric in size and shape. Brain: No intracranial bleeds or masses. There is cerebral volume loss for age , with resultant ventricular and sulcal prominence. There are periventricular and deep white matter chronic small vessel ischemic changes. There is intracranial internal carotid artery atherosclerosis. Skull and face: Calvarium and visualized facial bones appear intact, without suspicious lesions. Sinuses: Visualized sinuses and mastoids are clear. IMPRESSION: 1. No acute intracranial process. 2. Moderate atrophy and chronic microvascular ischemic changes. Dictated by: Yomaira Zavala M.D. on 12/24/2016 at 19:07 Approved by: Yomaira Zavala M.D. on 12/24/2016 at 19:07 PROCEDURE: CT ANGIO CHEST PULMONARY EMBOLISM ([id number]) INDICATIONS: Tachycardia after surgery/Possible PE TECHNIQUE: After the administration of intravenous contrast, 2 mm thick sections acquired from the pulmonary apices to the posterior costophrenic angles. 3-dimensional maximum intensity projection (MIP) coronal and sagittal reformats were then acquired through the thorax. For radiation dose reduction, the following was used: automated exposure control, adjustment of mA and/or kV according to patient size. COMPARISON: [facility], NM, PET NECK TO MID THIGH STD, 07/16/2016, 8 :47. [facility], CR, XR CHEST 2VW, 12/17/2016, 13:02. [facility], CR, XR CHEST 1VW (PORTABLE), 12/24/2016, 21:32. [facility], CT, CT ANGIO CHEST PE, 06/22/2016, 7:55. FINDINGS: Image quality: Excellent. Pulmonary arteries: Pulmonary arteries are normal in size, and demonstrate no intraluminal filling defects to suggest central pulmonary embolism. Lungs and pleura: There is small right pleural effusion and right lower lobe atelectasis. Trace left basilar atelectasis. A 1.4 cm nodule is seen in the anterior aspect of lingula, unchanged in size from 06/22/2016. No pleural effusions or pneumothorax. Central and peripheral airways are patent. Mediastinum: Heart size is normal, without pericardial effusion. No mediastinal or hilar adenopathy. Thoracic aorta is normal in caliber and enhancement. Esophagus is normal in caliber. There is a small hiatal hernia. Bones and chest wall: No suspicious bony lesions. Ribs and thoracic spine appear intact throughout. Thyroid gland is normal. No axillary or supraclavicular adenopathy. Abdomen: There are small gallstones. Visualized upper abdominal solid organs appear normal in the early arterial phase of enhancement. IMPRESSION: 1. No evidence for central pulmonary embolism. 2. Small right pleural effusion with right basilar atelectasis. 3. Stable 1.0 cm anterior lingula nodule. 4. Cholelithiasis. Dictated by: Koffi Carvalho M.D. on 12/27/2016 at 13:42 Approved by: Koffi Carvalho M.D. on 12/27/2016 at 13:49 12-lead ECG Sinus or ectopic atrial tachycardia . RBBB and LAFB . When compared with ECG of 22-Jun-2016 9:28:16, * Heart rate has increased Assessment & Plan Patient is a 76 year old male with a history of a right renal mass, T2DM, HTN, HLD, and a lung mass who presented with somnolence, confusion, and sinus tachycardia status post right partial nephrectomy for the right renal mass. Altered mental status, acute. Improved - Patient appears slightly somnolent and tachycardic post surgery. There are no focal neurologic signs on exam and CT head was negative, so stroke is less likely. Given his tachycardia, consider PE vs sepsis. His WBC was elevated as well; while this may be a stress reaction, there was a left shift. UA negative. - Lactic acid initially elevated postoperatively has now normalized - Blood cultures negative to date - Monitor vitals regularly - Continue LR deduce from 125 ml/hr to 80 mL an hour - We will change Zosyn to cefdinir 300 mg by mouth every 12 hours for 3 more days to complete a seven-day course of antibody therapy. Tachycardia, acute. Resolving - HR has been 110s to 120s since the surgery this AM. EKG shows sinus tachycardia. He apparently did not reports severe pain last evening but does report severe pain today. Given his hypercoagulable state, recent surgery, and tachycardia, pulmonary embolism is suspect. Lower ext US was ordered and was negative. A CT angiogram was ordered today and was negative for pulmonary embolism - Lower extremity doppler ordered and was negative - We will continue to monitor on telemetry - Troponin was negative and patient has no chest pain. - I suspect that the patient's severe pain is a lot to do with his tachycardia. Therefore, we will continue to aggressively control his pain with Percocet and Dilaudid.. Lactic acidosis, acute. - Lactic acid trended up despite fluid resuscitation. A lactic acid is now normalized - Possible sepsis with unknown source. - On Zosyn the lactic acid is coming down. - We will continue Zosyn q8h Diabetes mellitus, better controlled - Patient hypoglycemic this morning. Will discontinue oral diabetic medication. - Hemoglobin A1c was 6.5 - Continue Humalog 3 U with meals and medium dose correctional scale - Continue Lantus 10 U qhs Hyperkalemia improved - Recheck BMP in AM Hyperlipidemia. - Previously on simvastatin but is no longer taking this medication due to muscle aches. Hypertension - Controlled on lisinopril Disposition: Patient has been discharged today. Cabrera catheter is to be removed. Physical therapy has been consulted. Occupational therapy has been consulted. Patient will need occupational therapy and physical therapy 3 times a week for 4 weeks at home for increasing strength and conditioning as he is in quite a debilitated state. Patient will be discharged home today by urology. There are no medical contraindications to discharge at this time. Pain Evaluation: Adequate Pain Control GI Prophylaxis: Proton Pump Inhibitor VTE Mechanical Devices: Intermittant Pneumatic CD Resuscitation Status: CPR: Attempt Resuscitation Thanh Damon MD Dec 29, 2016 02:00
== END 2016-12-28 17:00 | disposition home health service (06) | DRG 657 ==
LOC: SAS 06:02 → OSC 12:02
PROVIDERS: ADMIT Urology; ATTEND Urology
PROC: 0TB00ZZ Excision of Right Kidney, Open Approach (ICD-10-PCS; principal; 2016-12-24 07:30)
DX: C64.1 Malignant neoplasm of right kidney, except renal pelvis (principal); E87.2 Acidosis; I10 Essential (primary) hypertension; E11.9 Type 2 diabetes mellitus without complications; Z79.84 Long term (current) use of oral hypoglycemic drugs; E78.5 Hyperlipidemia, unspecified; E87.5 Hyperkalemia; R41.82 Altered mental status, unspecified; R00.0 Tachycardia, unspecified

== ENCOUNTER 2017-01-08 09:27 | Inpatient (IN) | payer MEDICARE ==
[~2017-01-08] VITALS: Ht 175.3 cm; Wt 84.8 kg
[2017-01-08] VITALS (13 sets, daily range): BP systolic 56–128; BP diastolic 42–69; PULSE 98–127; RESP 14–20; O2SAT 95–100
[~2017-01-08 09:27] MED LIST changes: +CEFD300C3 PO; -CeFAZolin 2 Gm/50 mL D5W IV Premix IV ONE; -CeFAZolin 2 Gm/50 mL D5W IV Premix IV PRN; -DEXTROSE IV ONE; -Furosemide 10 mg/mL 2 mL Inj IV ONE; -Furosemide 10 mg/mL 2 mL Inj IV PRN; +INSLIS SUBQ; +INSU100V7 SUBQ; -Lactated Ringer's 1,000 ML IV ONE; -MANNITOL IV ONE; -Mannitol 25% 12.5 Gm/50 mL Inj IVPUSH PRN; +TAMS0.4C98 PO; -TRIA0.2525 PO
--- NOTE | 2017-01-08 09:58 | ED.REPORT ---
HPI-General Illness Date of Service Jan 08, 2017 ED Provider: Gm Garcia Patient is a 76 year old male with a hx of HTN, DM, and kidney cancer who presents to the ED complaining of fever onset this morning. Associated symptoms include increased frequency of urination, weakness, and blurred vision. He denies nausea, cough, chest pain, abdominal pain, headache, or any other symptoms. He recently had a surgery for left kidney cancer and had his catheter removed yesterday. Nursing Notes Stated Complaint: LOW BP/FEVER Chief Complaint: Male Abdominal Pain Nursing Notes Reviewed: Yes Allergies: Coded Allergies: No Known Allergies (Unverified , 01/08/17) Scheduled Atorvastatin (Lipitor) 20 Mg Tablet 20 MG PO DAILY Gabapentin (Gabapentin) 300 Mg Capsule 300 MG PO AM and afternoon Gabapentin (Gabapentin) 300 Mg Capsule 600 MG PO HS Glimepiride (Glimepiride) 4 Mg Tablet 4 MG PO BID Insulin Glargine (Lantus U100 Insulin Vial) 100 Unit/Ml Vial 10 UNIT SUBQ HS Insulin Human Lispro (HumaLOG U100 Insulin Vial) 100 Unit/Ml Unit 0 UNIT SUBQ WMHS Check blood sugars before meals and at bedtime. Use correction factor only before meals. Blood Sugar Lispro Correction: <151, 0 units; 151-175, 1 unit; 176-200, 2 units; 201-225, 3 units; 226-250, 4 units; 251-275, 5 units; 276-300 , 6 units; 301-325, 7 units; 326-350, 8 units; 351-375, 9 units; 376-400, 10 units; >400, 12 units. Lisinopril / HCTZ 20-12.5 mg (Lisinopril / HCTZ 20-12.5 mg) 1 Each Tablet 1 EACH PO DAILY Metformin (Glucophage) 1,000 Mg Tablet 1,000 MG PO BID Metoprolol Succinate ER (Metoprolol Succinate ER) 25 Mg Tab.er.24h 25 MG PO DAILY Tamsulosin (Flomax) 0.4 Mg Capsule 0.4 MG PO HS Scheduled PRN Hydrocodone-Acetaminophen 5-325 mg (Hydrocodone-Acetaminophen 5-325 mg) 1 Each Tablet 1 TABLET PO Q10H PRN PRN For Pain Nitroglycerin SL (Nitroglycerin SL) 0.4 Mg Tab.subl 0.4 MG SL Q5MIN PRN PRN For Chest Pain Triazolam (Triazolam) 0.125 Mg Tablet 0.125 MG PO HS PRN PRN Insomnia General Time Seen by MD: 09:57 Chief Complaint Fever Hx Obtained From: Patient, Spouse Arrived By: Wheelchair Sudden in Onset?: Yes Onset Occurred: 1 - 4 hours ago Symptom Duration: Since onset Past Medical History Past Medical History Chronic L hip pain Lung mass Hypertension Diabetes Kidney Cancer Past Surgical History Left lung biopsy L kidney surgery Smoking History Never Smoker Social History Other Social History: Smokeless tobacco, Good social support, Ambulatory Status Independent Review of Systems Full Review of Systems Constitutional: Reports: Fever, Weakness - generalized Eyes: Reports: Blurred bilateral Respiratory: Denies: Non-productive cough Cardiovascular: Denies: Chest pain GI: Denies: Abdominal pain, Nausea Male: Reports Urinary frequency Neurologic: Denies: Headache Complete sys rev & neg: except as marked. Physical Exam Vital Signs Vital Signs Date Time Temp Pulse Resp B/P Pulse Ox O2 Delivery O2 Flow Rate FiO2 01/08/17 10:39 36.7 01/08/17 10:36 101 113/49 100 Room Air 01/08/17 10:24 105 17 96/47 99 Room Air 01/08/17 09:58 105 15 81/42 98 Room Air 01/08/17 09:49 105 17 96/51 95 Room Air 01/08/17 09:34 37.8 109 20 77/42 96 Room Air Initial VS: Reviewed Head / Eyes: Atraumatic, Normocephalic Skin: Warm, Dry Neurologic: Alert, Oriented, Nonfocal Psychiatric: Mood/affect normal, Behavior normal, Normal thought content General/Constitutional: Awake, Alert ENT: Mucous membranes moist Neck: Atraumatic, Supple, Full range of motion Respiratory / Chest: Breath sounds NL, Breath sounds = bilat, No respiratory distress Cardiovascular: Heart rate NL, Regular rhythm, Heart sounds NL, No gallop, No murmurs, No rubs Abdomen: Soft, Non-tender RUQ incision - healing well Bowel sounds normal Back: No CVA tenderness Interpretation & Diagnostics Lab Results Interpretation Result Diagram: 01/08/17 0945 01/08/17 0945 Test 01/08/17 09:45 01/08/17 12:34 White Blood Count 20.0th/mm3 (3.8-10.1) Red Blood Count 3.73mil/mm3 (4.40-5.80) Hemoglobin 10.6g/dL (13.8-17.2) Hematocrit 32.7% (41.0-50.0) Mean Corpuscular Volume 87.7fL (81-100) Mean Corpuscular Hemoglobin 28.4pg (27.0-35.0) Mean Corpuscular Hemoglobin Concent 32.4% (32.0-37.0) Red Cell Distribution Width 12.8% (12.3-15.4) Platelet Count 637bil/L (150-400) Neutrophils (%) (Auto) 84.5% (40-74) Lymphocytes (%) (Auto) 6.9% (14-46) Monocytes (%) (Auto) 7.1% (4-12) Eosinophils (%) (Auto) 1.0% (0-5) Basophils (%) (Auto) 0.2% (0-3) Sodium Level 136mEq/L (134-144) Potassium Level 5.1mEq/L (3.5-5.2) Chloride Level 96mEq/L (97-108) Carbon Dioxide Level 20mmol/L (18-29) Blood Urea Nitrogen 23mg/dL (8-27) Creatinine 1.36mg/dL (0.76-1.27) Estimat Glomerular Filtration Rate 54mL/min (>59) Glucose Level 105mg/dL (60-99) Calcium Level 10.0mg/dL (8.5-10.1) Phosphorus Level 3.5mg/dL (2.5-4.9) Magnesium Level 1.6mg/dL (1.6-2.6) Total Bilirubin 0.3mg/dL (0.0-1.2) Aspartate Amino Transf (AST/SGOT) 24U/L (0-50) Alanine Aminotransferase (ALT/SGPT) 25U/L (0-44) Alkaline Phosphatase 96U/L (25-160) Troponin T 0.010ug/L (0.0-0.011) Total Protein 7.1g/dL (6.4-8.4) Albumin 3.8g/dL (3.4-5.0) Procalcitonin 0.19ng/mL (0.00-0.08) Urine Color Straw (YELLOW) Urine Appearance Slightly cloudy Urine pH 5.5 (5.0-8.0) Urine Specific Sims 1.005 (1.003-1.035) Urine Protein Tracemg/dL (NEG,TRACE) Urine Glucose (UA) Negativemg/dL (NEGATIVE) Urine Ketones Negativemg/dL (NEGATIVE) Urine Occult Blood Large (NEGATIVE) Urine Nitrite Positive (NEGATIVE) Urine Bilirubin Negative (NEGATIVE) Urine Urobilinogen Normalmg/dL (NORMAL) Urine Leukocyte Esterase Moderate (NEGATIVE) Urine RBC 0-2/hpf (0-2) Urine WBC >50/hpf (0-5) Urine Epithelial Cells Occasional/hpf (NONE-MOD) Urine Crystals None seen (NONE SEEN) Urine Bacteria Moderate/hpf (NONE-FEW) Urine Hyaline Casts None/lpf (NONE) Urine Granular Casts None seen (NONE SEEN) Urine Waxy Casts None seen (NONE SEEN) Urine Red Blood Cell Casts None seen (NONE SEEN) Urine White Blood Cell Casts None seen (NONE SEEN) Urine Mucus None seen (None Seen) Urine Trichomonas None seen (NONE SEEN) Urine Yeast None (NONE SEEN) Urinalysis Comment None Urine Culture Reflexed Indicated ECG Interpretation ECG Interpretation: Sinus tachy rate 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 Probable right basilar platelike atelectasis. However, short interval repeat study is recommended to ensure there is no underlying pulmonary pathology. 2. Left midlung pulmonary nodule. This underwent percutaneous sampling by CT guidance on 06/15/16 and repeat percutaneous sampling on 08/15/16. No neoplasm was identified in either sample. However, this nodule appears more conspicuous on the current study than on prior chest films. Increased size cannot be excluded. Consider nonemergent repeat CT evaluation to evaluate for change in size. Dictated by: Rima Chery M.D. on 01/08/2017 at 10:26 Approved by: Rima Chery M.D. on 01/08/2017 at 10:30 View: Portable, 1 view Interpretation / Wet Read by: Interpret - Radiologist Re-Eval/Medical Decision Med Decision/Clinical Course 76-year-old male with recent nephrectomy presenting with hypotension, reported fevers and tachycardia. He is found to have leukocytosis. Urine appears to be infected. His surgical incision looks good and he does not have abdominal pain or tenderness. Was given IV Zosyn for complicated urinary tract infection given recent catheterization. Blood cultures have been sent as has urine culture. Blood pressure is improved with IV fluids. Will be admitted to the hospitalist service, urology has been notified and will consult. Time of Eval: 11:00 Re-Evaluation/Progress Note: Discussed plan for admission. Patient understands and agrees with plan. All questions addressed at this time. Consultation #1: Referral / Consult Name: Avis Munoz MD Consulted With: Urology Call Returned at: 12:37 [employer]: Agrees with eval, Agrees with plan Note: Discussed pt's case. No imaging needed at this time. Consultation #2: Referral / Consult Name: Moraima Laureano DO Consulted With: Hospitalist Call Returned at: 12:56 [employer]: Will see patient, Agrees with eval, Agrees with plan, Accepts admit Note: Discussed pt's case. Accepts admit. Counseled Regarding: Diagnosis, Lab results, Need for admission Discharge & Departure Primary Impression: Sepsis Sepsis type: sepsis due to unspecified organism Qualified Code: A41.9 - Sepsis, unspecified organism Additional Impression: Urinary tract infection Disposition: ADMITTED TO HOSPITAL Discharge Condition All VS Reviewed: Yes Condition: Stable Referrals: Servando Gomez MD (PCP) Scribe Attestation Portions of this note were transcribed by Randolph Mullins. I, Dr. Garcia personally performed the history, physical exam and medical decision-making; I reviewed and confirmed the accuracy of the information in the transcribed note. Signed by: Randolph Mullins 01/08/17, 0868 copies to: Servando Gomez MD, Donald L MD Jan 08, 2017 09:57 RANDOLPH MULLINS Jan 08, 2017 10:05
[2017-01-08 10:01] LABS: BASOPHILS % (AUTO) 0.2 % (0-3); MONOCYTES % (AUTO) 7.1 % (4-12); Mean Corpuscular Hemoglobin 28.4 pg (27.0-35.0); Mean Corpuscular Volume 87.7 fL (81-100); NEUTROPHILS % (AUTO) 84.5 % (40-74); Platelet Count 637 bil/L (150-400)
[2017-01-08 10:26] LABS: TROPONIN T 0.01 ug/L (0.0-0.011)
--- NOTE | 2017-01-08 10:32 | DRSVH ---
PROCEDURE: X-RAY CHEST ONE VIEW, PORTABLE ([id number]) INDICATIONS: sepsis TECHNIQUE: One view of the chest was acquired. COMPARISON: [facility], CT, CT ANGIO CHEST PE, 12/27/2016, 13:08. [facility] S, CR, XR CHEST 2VW, 11/18/2015, 11:44. [facility], CT, CT BX LUNG MEDIASTINUM, 6, 8:52. [facility], CT, CT BX LUNG MEDIASTINUM, 08/15/2016, 8:57. [facility], CR, XR CHEST 2VW, 09/13/2015, 13:07[facility], CT, CT CHEST W CON, 12/12/2015, 15:57. [facility], CR, XR CHEST 1VW (PORTABLE), 12/24/2016, 21:32. FINDINGS: Surgical changes and devices: None. Lungs and pleura: Probable platelike atelectasis is present at the right lung base. The lungs are oth erwise clear. No pleural effusion or pneumothorax. An ill-defined left pulmonary nodule is redemonstr ated within the left midlung unchanged from the study dated 12/24/16. Mediastinum: Mediastinal contours appear normal. Heart size is normal. Bones and chest wall: No suspicious bony lesions. Overlying soft tissues appear unremarkable. IMPRESSION: 1. Probable right basilar platelike atelectasis. However, short interval repeat study is recommended to ensure there is no underlying pulmonary pathology. 2. Left midlung pulmonary nodule. This underwent percutaneous sampling by CT guidance on 06/15/16 and repeat percutaneous sampling on 08/15/16. No neoplasm was identified in either sample. However, this nodule appears more conspicuous on the current study than on prior chest films. Increased size cannot be excluded. Consider nonemergent repeat CT evaluation to evaluate for change in size. Dictated by: Rima Chery M.D. on 01/08/2017 at 10:26 Approved by: Rima Chery M.D. on 01/08/2017 at 10:30
[2017-01-08 10:37] LABS: Magnesium 1.6 mg/dL (1.6-2.6)
[2017-01-08] MEDS ORDERED: Piperacillin-Tazo 3.375 Gm Inj 3.375 GM in Dextrose 5% Minibag Plus 50 ML IV ONE (11:45)
[2017-01-08] MEDS ORDERED: 0.9% Sodium Chloride 1,000 ML IV ONE (12:15)
[2017-01-08 13:11] LABS: APPEARANCE,URINE SLIGHTLY CLOUDY (CLEAR,HAZY); COLOR,URINE STRAW (YELLOW); OCCULT BLOOD,URINE LARGE (NEGATIVE); PH,URINE 5.5 (5.0-8.0)
[2017-01-08 13:12] LABS: UROBILINOGEN,URINE NORMAL (NORMAL)
[2017-01-08] MEDS ORDERED: Ondansetron 2 mg/mL 2 mL Inj IVPUSH PRN ×2 (13:15→14:15)
[2017-01-08] MEDS ORDERED: Alum-Mag Hydrox-Simeth 30 mL Suspension PO PRN ×2 (13:15→14:15)
[2017-01-08] MEDS ORDERED: 0.9% Sodium Chloride 1,000 ML IV SCH (14:15)
[2017-01-08] MEDS ORDERED: Polyethylene Glycol (PEG) 17 Gm Powder PO PRN (14:15)
[2017-01-08] MEDS ORDERED: GABA-502 PO (14:22)
[2017-01-08 15:23] LABS: Phosphorus 3.5 mg/dL (2.5-4.9)
--- NOTE | 2017-01-08 16:04 | NUR ---
Admit Pt. transferred to [facility] with Rosibel Dias RN. then I took over care at 1515. I completed admit soon after and med rec completed by admit RN. Pt. denies chest pain, SOB, fever or abdominal pain. Oriented to room. No questions or concerns at this time.
[2017-01-08] MEDS: Sodium Chloride LOK Flush 10 mL Syringe IVFLUSH SCH (16:30)
[2017-01-08] MEDS: Heparin 5,000 Unit/mL Inj SUBQ SCH (17:22)
--- NOTE | 2017-01-08 18:20 | PCM.HPMED ---
Subjective Date of Service Jan 08, 2017 Primary Provider: Admitting Physician: Moraima Laureano DO Primary Care Physician: Servando Gomez MD Attending Physician: Moraima Laureano DO Chief Complaint: Weakness and blurry vision History of Present Illness: Mr. Hill Hurst is a very pleasant 76 year old gentleman with a history of HTN, DM, and Renal Cell Carcinoma status post 2 weeks right partial nephrectomy, who presents to the [facility] ED complaining of fever, blurry vision, weakness, and chills after earlier that morning (01/08/17). He reports retaining his dumont catheter with no home care since discharge December 28. At his follow up appointment 01/07/17 his dumont catheter was removed subsequent polyuria ensued. Associated symptoms include increased frequency of urination, weakness, and blurred vision. He denies nausea, cough, chest pain, abdominal pain, headache, or any other symptoms. Upon arrival to the ED vitals were as follows; T-37.8, HR-109, RR-20, BP-77/42, 96% RA. Notable labs. - WBC 20.0, Hgb 10.6, Plt 637, Neuts % 84.5, Cre 1.36, LA 3.6, trended to 1.3, procal 0.19. UA - straw Large occult blood, Nitrite +, Leuko Elisha Moderate, WBC >50, Cx pending. Blood cx pending. Chest XR- Left old pulmonary nodule, previous sampling with no neoplasm identified. May have increased in size compared to previous study. Consider non- emergent repeat C-T. In the ED patient received Zosyn IV, and 1-2L NS bolus. Review of Systems: A comprehensive review of systems was conducted with the patient and found to be negative except as above in the History of Present Illness. Allergies Coded Allergies: No Known Allergies (Unverified , 01/08/17) Home Medications Atorvastatin (Lipitor) 20 Mg Tablet 20 MG PO DAILY Cefdinir (Cefdinir) 300 Mg Capsule 300 MG PO BID Gabapentin (Gabapentin) 300 Mg Capsule 300 MG PO BID Glimepiride (Glimepiride) 4 Mg Tablet 4 MG PO BID Insulin Glargine (Lantus U100 Insulin Vial) 100 Unit/Ml Vial 10 UNIT SUBQ HS Insulin Human Lispro (HumaLOG U100 Insulin Vial) 100 Unit/Ml Unit 0 UNIT SUBQ WMHS Check blood sugars before meals and at bedtime. Use correction factor only before meals. Blood Sugar Lispro Correction: <151, 0 units; 151-175, 1 unit; 176-200, 2 units; 201-225, 3 units; 226-250, 4 units; 251-275, 5 units; 276-300 , 6 units; 301-325, 7 units; 326-350, 8 units; 351-375, 9 units; 376-400, 10 units; >400, 12 units. Lisinopril / HCTZ 20-12.5 mg (Lisinopril / HCTZ 20-12.5 mg) 1 Each Tablet 1 EACH PO DAILY Metformin (Glucophage) 1,000 Mg Tablet 1,000 MG PO BID Metoprolol Succinate ER (Metoprolol Succinate ER) 25 Mg Tab.er.24h 25 MG PO DAILY Tamsulosin (Flomax) 0.4 Mg Capsule 0.4 MG PO HS PMH Chronic L hip pain Lung mass Hypertension Diabetes RCC HLD Surgical History Left lung biopsy Right Partial nephrectomy s/p 2wks Family History Sister DMII Mother healthy passed at old age Father 69 Sudden Cardiac Social History Hx Alcohol Use: No Hx Substance Use: No Smoking Status: Never Smoker Additional Information Chew 1 can daily last 55 years. Exam Vital Signs Vital Sign - Last Date Time Temp Pulse Resp B/P Pulse Ox O2 Delivery O2 Flow Rate FiO2 01/08/17 14:42 103 01/08/17 13:57 37.0 14 127/69 99 Room Air Exam General: Elderly gentleman lying in bed in no acute distress, well-developed, well-nourished, appropriately interactive HEENT: Normocephalic, atraumatic. External ears without defect. Pupils equal, round, and reactive to light and accommodation. Anicteric sclerae, moist conjunctivae, and no lid lag. Oropharynx free of erythema and cobble stoning with moist mucosa. Neck: Supple with full range of motion. No jugular venous distension. No bruits. No lymphadenopathy or thyromegaly. Cardiovascular: Tachycardic rate and regular rhythm with no murmurs, rubs, or gallops appreciated Pulmonary: Clear to auscultation bilaterally with no crackles, wheezes, or rhonchi. Normal respiratory effort with no use of accessory muscles. Abdomen: Bowel tones present. Soft, nontender, nondistended. No hepatosplenomegaly or masses appreciated. Right middle Quadrant ~13cm intact, without erythema, edema. No oozing or TTP. Extremities: No clubbing, cyanosis, edema, or lymphadenopathy appreciated. Skin: Normal temperature, turgor, and texture; no rash, ulcers, or subcutaneous nodules appreciated. Neurological: Cranial nerves grossly intact. Normal muscle strength, tone, and bulk. Reflexes, coordination, and sensory function within normal limits. Walks with a cane but recently required 4ww. Psychiatric: Normal mood and affect. Alert and oriented to person, place, and time. Lab and Diagnostics Result Diagram: 01/08/17 0945 01/08/17 0945 X-Rays, CTs and MRIs X-RAY CHEST ONE VIEW, PORTABLE IMPRESSION: 1. Probable right basilar platelike atelectasis. However, short interval repeat study is recommended to ensure there is no underlying pulmonary pathology. 2. Left midlung pulmonary nodule. This underwent percutaneous sampling by CT guidance on 06/15/16 and repeat percutaneous sampling on 08/15/16. No neoplasm was identified in either sample. However, this nodule appears more conspicuous on the current study than on prior chest films. Increased size cannot be excluded. Consider nonemergent repeat CT evaluation to evaluate for change in size. Approved by: Rima Chery M.D. on 01/08/2017 at 10:30 Assessment & Plan Mr. Hill Hrust is a very pleasant 76 year old gentleman with a history of HTN, DM, and Renal Cell Carcinoma status post 2 weeks right partial nephrectomy, who is admitted to the [facility] and undergoing treatment for complicated urinary tract infection and sepsis. Sepsis, present on admission. Improving. - Admit HR 109, BP -77/42, RR 20, WBC 20, LA 3.6, UA ++ wbc's. - Most likely 2nd to complicated UTI from indwelling dumont. - Lactic acid normalized. - Continue Zosyn. - Continue Fluids bolus as needed to maintain systolic blood pressures. Previous ECHO 07/2016 EF 60-65% (with relaxation defect) Acute Complicated Urinary tract infection, present on admission. Active. - 2wks indwelling dumont cath. - UA - WBC > 50, Urine cx pending. - ABX as above. - Monitor urine output. - If worsens, will consider consulting Urology/Nephrology. Right partial nephrectomy s/p 2wks. - Currently reviewing outpatient records to determine functionality of Right kidney. Acute Kidney injury, present on admission. Active. - Unknown baseline, s/p R partial nephrectomy. - Will Review outpatient labs. HTN - Holding home Lisinopril / HCTZ 20/12.5, will restart when appropriate. - Holding home Metoprolol Succinate ER 25 PO. History of HLD - Continue home Atorvastatin 20mg daily. - Lipid panel pending. Insulin using DMII. - Holding home Metformin and glimepiride. - Consistent diet. - Home insulin Glargine 10 U HS, Lispro Low dose correctional scale. - HA1c pending. - Will continue home Gabapentin. Constipation. - Continue Scheduled bowel regimen MiraLax and Colace. Chronic Hip pain. - Contine Hydrocodone-Acetaminophen 5-325 PO Q10H BPH - Continue home Tamsulosin Acetaminophen for mild pain when necessary. Bowel regimen Senna and MiraLAX scheduled and PRN. Zofran when necessary for nausea and vomiting. SubQ heparin for now. SCDs in place. High-risk medications: NONE Patient Status: Patient is admitted under inpatient status with expected length of stay greater than 2 midnights due to severity of presenting symptoms, risk of adverse event, and complexity of treatment plan. Pain Evaluation: Adequate Pain Control Resuscitation Status: CPR: Attempt Resuscitation Time spent 60 minutes Attending Statement The patient was seen and examined together with Dr. Bhatia on 01/08/2017 and I have added additional information to the note above. STEVEN BHATIA DO Jan 08, 2017 15:25 Moraima Laureano DO Jan 08, 2017 18:19
--- NOTE | 2017-01-08 18:22 | PCM.ADCARE ---
Advance Care Planning Note Plan: Purpose of encounter: Goals of care Parties in attendance: Patient, patient's , Georgi Lyons, medical students (Juana) Decisional capacity: Good Diagnosis: Sepsis Complicated Urinary tract infection Status post right partial nephrectomy 2 weeks ago LUCIUS Hypertension Hyperlipidemia Plan: The patient and his are aware of the current diagnosis and would like to continue to be full code. The patient understands that this means for chest compressions, intubation, pressors, and all measures involved with CPR. CODE STATUS: Full code Time spent with advanced care planning: Greater than 16 minutes Moraima Laureano DO Jan 08, 2017 18:22
[2017-01-08] MEDS ORDERED: Glucose 40% Oral Gel 15 Gm Tube PO PRN (19:30)
[2017-01-08] MEDS ORDERED: HYDROcodone-APAP 5-325 mg Tablet PO PRN (19:50)
[2017-01-08] MEDS: Insulin LISPRO 300 Unit/3 mL Inj SUBQ SCH (21:37)
[2017-01-09] VITALS (8 sets, daily range): BP systolic 107–147; BP diastolic 61–73; PULSE 71–119; RESP 18–20; O2SAT 95–97
[2017-01-09] MEDS: Sodium Chloride LOK Flush 10 mL Syringe IVFLUSH SCH ×3 (00:23→16:30)
[2017-01-09] MEDS: Heparin 5,000 Unit/mL Inj SUBQ SCH ×3 (00:23→17:57)
[2017-01-09 02:51] LABS: BASOPHILS % (AUTO) 0.5 % (0-3); MONOCYTES % (AUTO) 10.7 % (4-12); Mean Corpuscular Hemoglobin 28.1 pg (27.0-35.0); Mean Corpuscular Volume 87.9 fL (81-100); NEUTROPHILS % (AUTO) 62.7 % (40-74); Platelet Count 561 bil/L (150-400)
[2017-01-09] MEDS ORDERED: oxyCODONE-Acetamin 5-325 mg Tablet PO ONE (03:50)
--- NOTE | 2017-01-09 05:46 | NUR ---
Pain/BG Pt stating pain in legs and feet 02/07, administered [place] x1 and effective for about 6 hours. Pt then stating pain 6-02/07. MD notified as orders for [place] were Q12 at that time. Order for 1x dose Percocet given and effective. Pt able to rest again. Pt 0330 BG 60, gave cranberry juice and reassessed 20 mins later, BG at that time 120. VSS and Tele SR
[2017-01-09] MEDS ORDERED: HYDROcodone-APAP 5-325 mg Tablet PO PRN (05:50)
[2017-01-09] MEDS: Insulin LISPRO 300 Unit/3 mL Inj SUBQ SCH ×4 (08:00→22:00)
[2017-01-09] MEDS: Piperacillin-Tazo 3.375 Gm Inj 3.375 GM in Dextrose 5% Minibag Plus 50 ML IV SCH ×2 (09:18→17:53)
--- NOTE | 2017-01-09 09:42 | PCM.PNMED ---
Subjective Date of Service Jan 09, 2017 Subjective Overnight he did have some pain in his legs which he attributes to not having his full gabapentin dose. This morning Mr. Hurst reports feeling much better than he did on admission. He denies any fever/chills, nausea/vomiting, abdominal pain, hematuria or dysuria. Exam Vital Signs Vital Sign - Last Date Time Temp Pulse Resp B/P Pulse Ox O2 Delivery O2 Flow Rate FiO2 01/09/17 03:07 37.1 98 20 146/73 95 Room Air Intake and Output 01/08/17 01/08/17 01/09/17 Cumulative From/Thru 15:00 23:00 07:00 01/08/17 09:34 - 01/09/17 06:07 Intake Total 2000 ml 40 ml 538 ml 2578 ml Output Total 250 ml 1000 ml 1250 ml Balance 1750 ml 40 ml -462 ml 1328 ml Intake Oral 500 ml 500 ml IV Total 2000 ml 40 ml 38 ml 2078 ml Output Urine Total 250 ml 1000 ml 1250 ml # Bowel Movements 0 0 Exam General: Elderly gentleman lying in bed in NAD, well-developed, well-nourished, appropriately interactive HEENT: NCAT. Pupils equal, round, and reactive to light and accommodation. Oropharynx free of erythema and cobble stoning with moist mucosa. Neck: Supple with full range of motion. No jugular venous distension, no thyromegaly. Cardiovascular: RRR without murmurs, rubs, or gallops Pulmonary: Clear to auscultation bilaterally with no crackles, wheezes, or rhonchi. Normal respiratory effort. Abdomen: Bowel tones present. Soft, nontender, nondistended. No hepatosplenomegaly. Right middle Quadrant ~13cm healing incision, without erythema or oozing. Extremities: No clubbing, cyanosis, edema. Skin: Normal temperature, turgor, and texture; no rash, ulcers, or subcutaneous nodules appreciated. Neurological: Cranial nerves grossly intact. Normal muscle strength, tone, and bulk. Reflexes, coordination, and sensory function within normal limits. Walks with a cane but recently required 4ww. Psychiatric: Normal mood and affect. A&Ox3. IVs and Medications Medications Reviewed: Medications were reviewed in detail Lab and Diagnostics Result Diagram: 01/09/1721901/09/17219 X-Rays, CTs and MRIs X-RAY CHEST ONE VIEW, PORTABLE IMPRESSION: 1. Probable right basilar platelike atelectasis. However, short interval repeat study is recommended to ensure there is no underlying pulmonary pathology. 2. Left midlung pulmonary nodule. This underwent percutaneous sampling by CT guidance on 06/15/16 and repeat percutaneous sampling on 08/15/16. No neoplasm was identified in either sample. However, this nodule appears more conspicuous on the current study than on prior chest films. Increased size cannot be excluded. Consider nonemergent repeat CT evaluation to evaluate for change in size. Approved by: Rima Chery M.D. on 01/08/2017 at 10:30 Assessment & Plan Mr. Hill Hurst is a very pleasant 76 year old gentleman with a history of HTN, DM, and Renal Cell Carcinoma status post 2 weeks right partial nephrectomy, who is admitted to the [facility] and undergoing treatment for complicated urinary tract infection and sepsis. Sepsis, present on admission. Resolved. - Admit HR 109, BP 77/42, RR 20, WBC 20, LA 3.6, source likely UTI (UA ++ wbc's) - Most likely secondary to complicated UTI from recent indwelling dumont s/p nephroectomy. - WBC and lactic acid trending to normal - Urine culture reveals gram negative johanna - Continue Zosyn, will narrow when sensitivities return - Blood pressures sustained right now; consider fluid bolus if unable to maintain Acute Complicated Urinary tract infection, present on admission. Improving. - Likely secondary to indwelling dumont catheter for 2 weeks - Urine culture as above, sensitivities pending - Antibiotics as above. - Urine output increasing, patient reports no dysuria or hematuria - Consider consulting Urology/Nephrology consult if symptoms return Right partial nephrectomy s/p 2wks. Stable. - Currently reviewing outpatient records to determine functionality of Right kidney. Acute Kidney injury, present on admission. Improved. - Unknown baseline, s/p R partial nephrectomy. - Creatinine 1.3 on admission has fallen to 1.06 - Avoid nephrotoxic drugs HTN - Will restart Metoprolol Succinate ER 25 PO - Continue holding home Lisinopril/HCTZ 20/12.5, consider restarting if his blood pressure increases and Cr continues to return to normal History of HLD - Continue home Atorvastatin 20mg daily. - Lipid panel pending Insulin using DMII. - Holding home Metformin and glimepiride. - Diabetic diet. - Home insulin Glargine 10 U HS, Lispro Low dose correctional scale. - HA1c 6.1 - Continue home gabapentin regimen (300mg AM, 300mg at dinner, 600mg qHS) Constipation. - Continue Scheduled bowel regimen MiraLax and Colace. Chronic Hip pain. - Contine Hydrocodone-Acetaminophen 5-325 PO Q10H BPH - Continue home Tamsulosin Acetaminophen for mild pain when necessary. Bowel regimen Senna and MiraLAX scheduled as necessary. Zofran when necessary for nausea and vomiting. SubQ heparin on board. SCDs in place. High-risk medications: NONE Disposition: Patient will likely be discharged in the next 1-2 days depending on his continued medical stability and his response to antibiotic therapy. VTE Mechanical Devices: Intermittant Pneumatic CD Resuscitation Status: CPR: Attempt Resuscitation Attending Statement The patient was seen and examined together with Dr. Catherine on 01/09/17 and I have added additional information to the note above. Alfie Catherine DO Jan 09, 2017 09:41 Moraima Laureano DO Jan 16, 2017 13:16
--- NOTE | 2017-01-09 14:51 | NUR ---
Social Work Note: Initial Assessment/Multidisciplinary rounds. Data& Assessment: EMR reviewed. Pt was discussed in AM rounds. Per MD pt is not medically ready for discharge at this time. SW met with pt and pt at bedside to discuss discharge planning, SW role explained and DC planning checklist provided. Hill Hurst is a 76 year old male admitted on01/08/2017 for sepsis. Pt has [facility] plan of [place] medic insurance and sees Servando Gomez and CEFERINO Garrison for primary care (Depending on who is available). Pt lives in [place] in a one story home with his and is independent at baseline with all ADL's. Pt occasionally uses a cane when leaving the house. Pt drives. Pt is currently open with [facility] RN, OT and PT, pt agreeable to resume these services at time of discharge. Pt does not have SNF hx or LTC insurance. Pt does not have VA benefits. Pt had recent hospitalization two weeks ago and had his bladder removed. Pt states he readmitted due to issues with his catheter and developing an infection. Pt denies any concerns going home at time of discharge. Pt has DPOA/AD paperwork completed, SW requested a copy when possible. MD does not identify any concerns with pt capacity for self care. Pt denies any needs at this time. No other discharge needs or MD orders identified at this time. SW to continue to follow. Plan: Anticipated discharge home with resume [facility] PT, RN and OT pending MD order. Pt denies any needs at this time. No other discharge needs or MD orders identified at this time. SW to continue to follow. ISMAEL Montenegro Addendum: 01/09/17 at 1459 by RASHI TOMLIN Amended: Links added.
--- NOTE | 2017-01-09 19:48 | NUR ---
Fever Called by telephone interviewer, pts HR in the 130s at about 1545, check pt's tele, seeing pt HR trending up through the day. Pts temp was 39.2 when checked. 975mg of Tylenol PO given and Resident made aware. No new orders at this time. Pts temp 37.7 with reassessment. Report given to oncoming RN.
[2017-01-10] VITALS (7 sets, daily range): BP systolic 118–137; BP diastolic 64–72; PULSE 98–108; RESP 14–20; O2SAT 95–97
[2017-01-10] MEDS: Heparin 5,000 Unit/mL Inj SUBQ SCH ×3 (00:11→16:30)
[2017-01-10] MEDS: Sodium Chloride LOK Flush 10 mL Syringe IVFLUSH SCH ×3 (00:11→16:30)
[2017-01-10] MEDS: Piperacillin-Tazo 3.375 Gm Inj 3.375 GM in Dextrose 5% Minibag Plus 50 ML IV SCH ×3 (00:11→16:30)
[2017-01-10 03:13] LABS: BASOPHILS % (AUTO) 0.3 % (0-3); EOSINOPHILS % (AUTO) 1.7 % (0-5); MONOCYTES % (AUTO) 10.3 % (4-12); Mean Corpuscular Hemoglobin 28.5 pg (27.0-35.0); NEUTROPHILS % (AUTO) 69.5 % (40-74); Platelet Count 534 bil/L (150-400)
--- NOTE | 2017-01-10 04:45 | NUR ---
Temp/Telemetry Alert and oriented x3. C/o weakness especially during activity. Enc to call staff for assistance with understanding noted. Temp max 37.7-37.8 tonight. He complains of intermittent chills at times but reported not as bad this am. [place] and Gabapentin for chronic pain/discomfort with effectiveness noted. Telemetry SR-ST high 90s to low 100s with IVCD. Pt requested sleeping pill last night with effectiveness noted.
[2017-01-10] MEDS: Insulin LISPRO 300 Unit/3 mL Inj SUBQ SCH ×2 (09:08→12:27)
--- NOTE | 2017-01-10 13:40 | PCM.PNMED ---
Subjective Date of Service Jan 10, 2017 Subjective Overnight the patient did have some low grade fevers and feelings of weakness. Mr. Hurst is still feeling weak but he does not feel feverish. He denies any fevers/chills, nausea/vomiting, shortness of breath, dysuria or hematuria. Exam Vital Signs Vital Sign - Last Date Time Temp Pulse Resp B/P Pulse Ox O2 Delivery O2 Flow Rate FiO2 01/10/17 12:13 37.4 103 18 132/72 97 Room Air Intake and Output 01/09/17 01/09/17 01/10/17 Cumulative From/Thru 15:00 23:00 07:00 01/08/17 09:34 - 01/10/17 05:25 Intake Total 1454 ml 600 ml 4632 ml Output Total 1450 ml 700 ml 3400 ml Balance 4 ml -100 ml 1232 ml Intake Oral 960 ml 300 ml 1760 ml IV Total 494 ml 300 ml 2872 ml Output Urine Total 1450 ml 700 ml 3400 ml # Bowel Movements 0 0 0 Exam General: Elderly gentleman lying in bed in NAD, well-developed, well-nourished, appropriately interactive HEENT: NCAT. PERRLA, EOMI. Oropharynx free of erythema and cobble stoning with moist mucosa. Neck: Supple with full range of motion. No jugular venous distension, no thyromegaly. Cardiovascular: RRR without murmurs, rubs, or gallops Pulmonary: CTA bilaterally with no crackles, wheezes, or rhonchi. Normal respiratory effort. Abdomen: Bowel tones present. Soft, nontender, nondistended. No hepatosplenomegaly. Right middle Quadrant ~13cm healing incision, without erythema or oozing. No suprapubic tenderness. Extremities: No clubbing, cyanosis, edema. Skin: Normal temperature, turgor, and texture; no rash, ulcers. Neurological: Cranial nerves grossly intact. 3/5 muscle strength, tone, and bulk. Reflexes, coordination, and sensory function within normal limits. Walks with a cane but recently required 4ww. Psychiatric: Normal mood and affect. A&Ox3. IVs and Medications Medications Reviewed: Medications were reviewed in detail Lab and Diagnostics Result Diagram: 01/10/175 01/10/17244 X-Rays, CTs and MRIs X-RAY CHEST ONE VIEW, PORTABLE IMPRESSION: 1. Probable right basilar platelike atelectasis. However, short interval repeat study is recommended to ensure there is no underlying pulmonary pathology. 2. Left midlung pulmonary nodule. This underwent percutaneous sampling by CT guidance on 06/15/16 and repeat percutaneous sampling on 08/15/16. No neoplasm was identified in either sample. However, this nodule appears more conspicuous on the current study than on prior chest films. Increased size cannot be excluded. Consider nonemergent repeat CT evaluation to evaluate for change in size. Approved by: Rima Chery M.D. on 01/08/2017 at 10:30 Assessment & Plan Mr. Hill Hurst is a very pleasant 76 year old gentleman with a history of HTN, DM, and Renal Cell Carcinoma status post 2 weeks right partial nephrectomy, who is admitted to the [facility] and undergoing treatment for complicated urinary tract infection and sepsis. Sepsis, present on admission. Resolved. - Admit HR 109, BP 77/42, RR 20, WBC 20, LA 3.6, source likely UTI (UA ++ wbc's) - Most likely secondary to complicated UTI from recent indwelling dumont. - WBC bumped from ~11 to 13 - Urine culture reveals Enterobacter Asburiae - Infectious Disease consulted, appreciate their expertise Acute Complicated Urinary tract infection, present on admission. Improving. - Likely secondary to indwelling dumont catheter for 2 weeks - Culture as above - ID consulted as above Right partial nephrectomy s/p 2wks. Stable. - Wound is stable, close, without erythema or overt infection. Acute Kidney injury, present on admission. Improved. - Unknown baseline, s/p R partial nephrectomy. - Creatinine 1.3 on admission, stable ~1-1.1 - Avoid nephrotoxic drugs HTN - Continue Metoprolol Succinate ER 25 PO - Continue holding home Lisinopril/HCTZ 20/12.5, consider restarting if his blood pressure increases History of HLD - Continue home Atorvastatin 20mg daily. - Lipid panel unremarkable Insulin using DMII. - Holding home Metformin and glimepiride. - Diabetic diet. - Home insulin Glargine 10 U HS, Lispro Low dose correctional scale. - HA1c 6.1 - Continue home gabapentin regimen (300mg AM, 300mg at dinner, 600mg qHS) Constipation. - Continue Scheduled bowel regimen MiraLax and Colace. Chronic Hip pain. - Contine Hydrocodone-Acetaminophen 5-325 PO Q10H BPH - Contine home Tamsulosin Acetaminophen for mild pain when necessary. Bowel regimen Senna and MiraLAX scheduled as necessary. Zofran when necessary for nausea and vomiting. SubQ heparin on board. SCDs in place. High-risk medications: NONE Disposition: Patient will likely be discharged in the next 1-2 days depending on his continued medical stability and his response to antibiotic therapy. VTE Mechanical Devices: Intermittant Pneumatic CD Resuscitation Status: CPR: Attempt Resuscitation Alfie Catherine DO Jan 10, 2017 13:40 VTE Mechanical Devices: Intermittant Pneumatic CD Resuscitation Status: CPR: Attempt Resuscitation Alfie Catherine DO Jan 10, 2017 13:40
[2017-01-10] MEDS ORDERED: MeTOProlol XL 25 mg ER24 Tablet PO SCH (13:45)
--- NOTE | 2017-01-10 15:19 | NUR ---
Social Work: Multidisciplinary Rounds Pt discussed in am rounds. Pt is not yet medically stable for discharge. Sw status remains unchanged. Pt to discharge home with Resumed [facility]: RN, PT/OT. CABLE SPLICER APPRENTICE received t/c from Onesimo Severino with [facility]. He states that the pt was never opened for services. They have all of the completed documentation to open the patient for PT. If MD would like the pt to be seen for RN or OT, he can write this in d/c instructions and complete new F2F. ISMAEL Chávez
--- NOTE | 2017-01-10 16:04 | PCM.DIMED ---
Alfie Catherine DO 01/10/17 1604: Discharge Instructions Date of Service Jan 10, 2017 Dates of Hospitalization Jan 08, 2017 at 13:31 Discharge Diagnosis Discharge Diagnosis Sepsis Acute Complicated Urinary tract infection Right partial nephrectomy Acute Kidney injury Hypertension Hyperlipidemia Insulin using DMII. Constipation. Chronic Hip pain. BPH Diet Discharge Diet: Renal Diet Activity Discharge Activity: Home Health Phyical Therapy (post op and post hospital 2x week for 2-3 weeks) Patient Instructions Patient Instructions Continue your home medications as usual. Your new antibiotic is called Ciprofloxacin. Take 500mg twice daily for 12 days due to your urinary tract infection to ensure proper treatment. I recommend you continue with Home Health PT and OT for 3x weekly for 4 weeks, as you have been weak, likely due to your recent surgery as well as this hospitalization. Follow-up Provider: Servando Gomez MD Follow-up with PCP in: 2 weeks (1-2 weeks) Moraima Laureano DO 01/12/17 1332: Discharge Instructions Attending's Statement The patient was seen and examined together with Dr. Catherine on 01/10/2017 and I agree with the history, exam and plan as outlined in the note above. Alfie Catherine DO Jan 10, 2017 16:04 Moraima Laureano DO Jan 12, 2017 13:32
[2017-01-10] MEDS ORDERED: CIPR-198 PO (16:06)
--- NOTE | 2017-01-10 16:23 | PCM.DC.MED ---
Discharge Summary Date of Service Jan 10, 2017 Dates of Hospitalization Date of Hospital Admission Jan 08, 2017 at 13:31 Date of Discharge: Jan 10, 2017 Providers: Admitting Physician: Moraima Laureano DO Primary Care Physician: Servando Gomez MD Attending Physician: Moraima Laureano DO Diagnosis at Time of Discharge Diagnosis at Time of Discharge Sepsis Acute Complicated Urinary tract infection Right partial nephrectomy Acute Kidney injury Hypertension Hyperlipidemia Insulin using DMII. Constipation. Chronic Hip pain. BPH Consultations Dr. Westbrook, Infectious Disease Procedures XRay, CTs & MRIs X-RAY CHEST ONE VIEW, PORTABLE IMPRESSION: 1. Probable right basilar platelike atelectasis. However, short interval repeat study is recommended to ensure there is no underlying pulmonary pathology. 2. Left midlung pulmonary nodule. This underwent percutaneous sampling by CT guidance on 06/15/16 and repeat percutaneous sampling on 08/15/16. No neoplasm was identified in either sample. However, this nodule appears more conspicuous on the current study than on prior chest films. Increased size cannot be excluded. Consider nonemergent repeat CT evaluation to evaluate for change in size. Approved by: Rima Chery M.D. on 01/08/2017 at 10:30 Brief History Mr. Hill Hurst is a very pleasant 76 year old gentleman with a history of HTN, DM, and Renal Cell Carcinoma status post 2 weeks right partial nephrectomy, who presents to the [facility] ED complaining of fever, blurry vision, weakness, and chills after earlier that morning (01/08/17). He reports retaining his dumont catheter with no home care since discharge December 28. At his follow up appointment 01/07/17 his dumont catheter was removed, subsequent polyuria ensued. Associated symptoms include increased frequency of urination, weakness, and blurred vision. He denies nausea, cough, chest pain, abdominal pain, headache, or any other symptoms. He was found to be septic (tachycardic, hypotensive, leukocytosis) with probable source his UTI likely from his recent indwelling dumont. He was put on Zosyn and fluid resuscitated, his BP meds were held. His infectious markers trended to normal and he has been able to maintain his BP stably. As we looked toward discharge, Infectious Disease was consulted due to his comorbidities and recent surgery for antibiotic regimens that could be done as an outpatient. He is prescribed Ciprofloxacin 500mg twice daily for 12 days. I also recommend he continue home health, as he is still quite weak from his recent surgery and now his hospitalization. He is instructed to follow up with his PCP in 1-2 weeks to ensure his continued improvement. Hospital Course Mr. Hill Hurst is a very pleasant 76 year old gentleman with a history of HTN, DM, and Renal Cell Carcinoma status post 2 weeks right partial nephrectomy, who was admitted to the [facility] and undergoing treatment for complicated urinary tract infection and sepsis. Sepsis, present on admission. Resolved. - Most likely secondary to complicated UTI from recent indwelling dumont. - Urine culture revealed Enterobacter Asburiae - Infectious Disease consulted, recommended 12 days of Ciprofloxacin 500mg twice daily. Acute Complicated Urinary tract infection, present on admission. Improving. - Likely secondary to indwelling dumont catheter for 2 weeks - Culture as above - ID recommendations as above Right partial nephrectomy s/p 2wks. Stable. - Wound is stable, close, without erythema or overt infection. - He will follow up with his PCP in 1-2 weeks to evaluate his wound as well as antibiotic success. Acute Kidney injury, present on admission. Resolved. - Patient likely at baseline ~1 - Avoid nephrotoxic drugs HTN - Continue Metoprolol Succinate ER 25 PO - Continue Lisinopril/HCTZ 20/12.5 History of HLD - Continue home Atorvastatin 20mg daily. Insulin using DMII. - HA1c 6.1 - Continue Metformin and glimepiride - Continue home insulin regimen - Continue home gabapentin regimen (300mg AM, 300mg at dinner, 600mg qHS) Constipation. - Continue Scheduled bowel regimen MiraLax and Colace. Chronic Hip pain. - Contine Hydrocodone-Acetaminophen 5-325 PO Q10H BPH - Contine home Tamsulosin Disposition: Patient was discharged in improved and stable condition. He and his expressed understanding of his antibiotic regimen and under what circumstances he was to return to the hospital. Exam Vital Signs (Last) Date Time Temp Pulse Resp B/P Pulse Ox O2 Delivery O2 Flow Rate FiO2 01/10/17 15:15 37.3 106 20 129/69 96 Room Air Exam General: Elderly gentleman sitting upright in NAD, well-developed, well- nourished, appropriately interactive HEENT: NCAT. PERRLA, EOMI. Oropharynx free of erythema and cobble stoning with moist mucosa. Neck: Supple with full range of motion. No jugular venous distension, no thyromegaly. Cardiovascular: RRR without murmurs, rubs, or gallops Pulmonary: CTA bilaterally with no crackles, wheezes, or rhonchi. Normal respiratory effort. Abdomen: Bowel tones present. Soft, nontender, nondistended. No hepatosplenomegaly. Right middle Quadrant ~13cm healing incision, without erythema or oozing. No suprapubic tenderness. Extremities: No clubbing, cyanosis, edema. Skin: Normal temperature, turgor, and texture; no rash, ulcers. Neurological: Cranial nerves grossly intact. 3/5 muscle strength, tone, and bulk. Reflexes, coordination, and sensory function within normal limits. Psychiatric: Normal mood and affect. A&Ox3. Test 01/08/17 09:45 01/08/17 12:34 01/08/17 17:28 01/09/17 02:20 Hemoglobin A1c 6.1% (4.8-5.6) Phosphorus Level 3.5mg/dL (2.5-4.9) Magnesium Level 1.6mg/dL (1.6-2.6) Troponin T 0.010ug/L (0.0-0.011) Urine Color Straw (YELLOW) Urine Appearance Slightly cloudy Urine pH 5.5 (5.0-8.0) Urine Specific [place] 1.005 (1.003-1.035) Urine Protein Tracemg/dL (NEG,TRACE) Urine Glucose (UA) Negativemg/dL (NEGATIVE) Urine Ketones Negativemg/dL (NEGATIVE) Urine Occult Blood Large (NEGATIVE) Urine Nitrite Positive (NEGATIVE) Urine Bilirubin Negative (NEGATIVE) Urine Urobilinogen Normalmg/dL (NORMAL) Urine Leukocyte Esterase Moderate (NEGATIVE) Urine RBC 0-2/hpf (0-2) Urine WBC >50/hpf (0-5) Urine Epithelial Cells Occasional/hpf (NONE-MOD) Urine Crystals None seen (NONE SEEN) Urine Bacteria Moderate/hpf (NONE-FEW) Urine Hyaline Casts None/lpf (NONE) Urine Granular Casts None seen (NONE SEEN) Urine Waxy Casts None seen (NONE SEEN) Urine Red Blood Cell Casts None seen (NONE SEEN) Urine White Blood Cell Casts None seen (NONE SEEN) Urine Mucus None seen (None Seen) Urine Trichomonas None seen (NONE SEEN) Urine Yeast None (NONE SEEN) Urinalysis Comment None Urine Culture Reflexed Indicated Lactic Acid Level 1.3mmol/L (0.4-2.0) Triglycerides Level 85mg/dL (0-149) Cholesterol Level 127mg/dL (100-199) LDL Cholesterol, Calculated 76.000mg/dL (0-99) VLDL Cholesterol 17.000mg/dL HDL Cholesterol 34mg/dL (>39) Cholesterol/HDL Ratio 3.74 (0.0-4.4) Procalcitonin 0.24ng/mL (0.00-0.08) Test 01/10/17 02:45 White Blood Count 13.0th/mm3 (3.8-10.1) Red Blood Count 3.26mil/mm3 (4.40-5.80) Hemoglobin 9.3g/dL (13.8-17.2) Hematocrit 28.7% (41.0-50.0) Mean Corpuscular Volume 88.0fL (81-100) Mean Corpuscular Hemoglobin 28.5pg (27.0-35.0) Mean Corpuscular Hemoglobin Concent 32.4% (32.0-37.0) Red Cell Distribution Width 12.8% (12.3-15.4) Platelet Count 534bil/L (150-400) Neutrophils (%) (Auto) 69.5% (40-74) Lymphocytes (%) (Auto) 18.0% (14-46) Monocytes (%) (Auto) 10.3% (4-12) Eosinophils (%) (Auto) 1.7% (0-5) Basophils (%) (Auto) 0.3% (0-3) Sodium Level 140mEq/L (134-144) Potassium Level 4.8mEq/L (3.5-5.2) Chloride Level 102mEq/L (97-108) Carbon Dioxide Level 22mmol/L (18-29) Blood Urea Nitrogen 16mg/dL (8-27) Creatinine 1.14mg/dL (0.76-1.27) Estimat Glomerular Filtration Rate 66mL/min (>59) Glucose Level 124mg/dL (60-99) Calcium Level 9.5mg/dL (8.5-10.1) Total Bilirubin 0.3mg/dL (0.0-1.2) Aspartate Amino Transf (AST/SGOT) 14U/L (0-50) Alanine Aminotransferase (ALT/SGPT) 19U/L (0-44) Alkaline Phosphatase 88U/L (25-160) Total Protein 5.9g/dL (6.4-8.4) Albumin 3.3g/dL (3.4-5.0) Discharge Medications Discharge Medications Atorvastatin (Lipitor) 20 Mg Tablet 20 MG PO DAILY (Reported) Ciprofloxacin (Ciprofloxacin) 500 Mg Tablet 500 MG PO BID Prescribed by: TANNER CATHERINE DO Gabapentin (Gabapentin) 300 Mg Capsule 300 MG PO AM and afternoon (Reported) Gabapentin (Gabapentin) 300 Mg Capsule 600 MG PO HS (Reported) Glimepiride (Glimepiride) 4 Mg Tablet 4 MG PO BID (Reported) Insulin Glargine (Lantus U100 Insulin Vial) 100 Unit/Ml Vial 10 UNIT SUBQ HS Prescribed by: SHANNON CORTÉS MD Insulin Human Lispro (HumaLOG U100 Insulin Vial) 100 Unit/Ml Unit 0 UNIT SUBQ WMHS Check blood sugars before meals and at bedtime. Use correction factor only before meals. Blood Sugar Lispro Correction: <151, 0 units; 151-175, 1 unit; 176-200, 2 units; 201-225, 3 units; 226-250, 4 units; 251-275, 5 units; 276-300 , 6 units; 301-325, 7 units; 326-350, 8 units; 351-375, 9 units; 376-400, 10 units; >400, 12 units. Prescribed by: SHANNON CORTÉS MD Lisinopril / HCTZ 20-12.5 mg (Lisinopril / HCTZ 20-12.5 mg) 1 Each Tablet 1 EACH PO DAILY (Reported) Metformin (Glucophage) 1,000 Mg Tablet 1,000 MG PO BID (Reported) Metoprolol Succinate ER (Metoprolol Succinate ER) 25 Mg Tab.er.24h 25 MG PO DAILY (Reported) Tamsulosin (Flomax) 0.4 Mg Capsule 0.4 MG PO HS Prescribed by: SHANNON CORTÉS MD As needed Hydrocodone-Acetaminophen 5-325 mg (Hydrocodone-Acetaminophen 5-325 mg) 1 Each Tablet 1 TABLET PO Q10H PRN PRN For Pain (Reported) Nitroglycerin SL (Nitroglycerin SL) 0.4 Mg Tab.subl 0.4 MG SL Q5MIN PRN PRN For Chest Pain (Reported) Triazolam (Triazolam) 0.125 Mg Tablet 0.125 MG PO HS PRN PRN Insomnia (Reported ) Followup Plan Disposition: home in stable condition Discharge Diet: Renal Diet Discharge Activity: Home Health Phyical Therapy (post op and post hospital 2x week for 2-3 weeks) Patient Instructions Continue your home medications as usual. Your new antibiotic is called Ciprofloxacin. Take 500mg twice daily for 12 days due to your urinary tract infection to ensure proper treatment. I recommend you continue with Home Health PT as you have been weak, likely due to your recent surgery as well as this hospitalization. Follow-up Provider: Servando Gomez MD Follow-up with PCP in: 2 weeks (1-2 weeks) Time spent Greater than 35 minutes Attending Statement The patient was seen and examined together with Dr. Catherine on 01/10/17 and I have added additional information to the note above. copies to: Servando Gomez MD, Jeffery S DO Jan 10, 2017 16:23 Moraima Laureano DO Jan 12, 2017 13:38
--- NOTE | 2017-01-10 16:31 | NUR ---
Social Work: Discharge D: Pt discussed with . Pt is being discharged. MD is writing resumption of care orders for HH for PT and OT. He is not renewing the pt's RN as the pt no longer has a catheter or these RN needs. NURSE SPECIALIST spoke with Onesimo Severino with [facility] to notify that the pt is being discharge with resumption orders. Left message to provide this information. He is aware that RN is not being renewed. NURSE SPECIALIST met with the pt at bedside to confirm discharge plan. Pt agrees with plan to go home with resumed HH through [facility] for PT/OT. Pt states that Onesimo has come to see him to discuss these services. Pt's family will transport. A: Pt who is I at baseline and lives iwth his spouse in [place]. P: Pt to discharge home with resumed [facility] for PT/OT. ISMAEL Chávez
--- NOTE | 2017-01-10 16:32 | CONS ---
[address] [address] CONSULTATION REPORT PATIENT: SHIVAM SEXTON : 1940 MR#: [id number] ADMIT: 01/08/2017 JOB ID: [id number] DATE OF SERVICE: 01/10/2017 INFECTIOUS DISEASE CONSULTATION: I thank Dr. Laureano for this timely consult. REASON FOR CONSULTATION: A complicated Enterobacter urinary tract infection with associated septic shock. HISTORY OF PRESENT ILLNESS: The patient is a relatively healthy 76-year-old gentleman with underlying past medical history which includes extremely well-controlled diabetes, a pulmonary nodule which is being followed, hypertension and hyperlipidemia. The patient had a biopsy of his lung nodule several months ago and it was nondiagnostic and it is being followed radiographically. Unfortunately, the patient developed a right renal mass which was malignant and underwent a partial nephrectomy two weeks ago back on December 28. Following that partial nephrectomy, there were considerable problems with his Cabrera in that when it was pulled he could not void and it was reinserted, then it was pulled again, then it was reinserted and this eventually led to a situation where the patient developed fever, chills, profound weakness, blurry vision and malaise on January 08. This was actually the day after his Cabrera was finally for the last time pulled, but unfortunately he was already on his way to becoming quite ill. He was found to have high fever at the time of the evaluation and a blood pressure which had actually fallen into the night into the 70s in association with fever, tachycardia, tachypnea and even perhaps some degree of confusion. Because of all these reasons, the patient was admitted on January 08 and intravenous antibiotics initiated. The patient and his note that in his short stay here in the hospital he has already started to improve dramatically. His fevers and chills have basically resolved though he did have a single high spiking fever yesterday. His chills are better. His strength has increased somewhat and he was able to get up and get around a bit in his room today. All the traces of confusion or other problems have resolved and this afternoon he has no real constitutional complaints. ID consultation is requested regarding optimal management of this life-threatening urinary tract infection with systemic symptoms and shock. PAST MEDICAL HISTORY: 1. Pulmonary nodule 1 cm which is being followed and was biopsied about seven months ago and found not at that time at least to be malignant. 2. Diabetes. 3. Hypertension. 4. Renal cell carcinoma on the right with partial nephrectomy December 28. 5. Hyperlipidemia. 6. Chronic left hip pain. SOCIAL HISTORY: The patient is a non drinker, nonsmoker. He does, however, chew snus or chew tobacco. 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 FAMILY HISTORY: Negative for tuberculosis in first and second-degree relatives. It is positive for diabetes. REVIEW OF SYSTEMS: At this point, the patient has no headache. The blurry vision he had prior to admission has resolved. No sore throat. No significant cough or shortness of breath. No chest pain. No nausea, vomiting or diarrhea. He has minimal pain along the site of his incision. He does have some suprapubic pain. At this point, his Cabrera has been out now for three days finally and he is having no dysuria, urgency or frequency and no trouble voiding. No swelling in the extremities. No skin rash and the remainder of the review of systems is negative. PHYSICAL EXAMINATION: Reveals an afebrile gentleman, temperature 37.3. His last temperature was an impressive 39.2 yesterday at 3 o'clock, so he has been afebrile just 24 hours now. His current pulse 106, respiratory rate 20, blood pressure 129/69. He is saturating 96% on room air. The patient is awake, alert and appears quite comfortable. No evidence of injury to the head. No temporal wasting. No conjunctivitis. Oral cavity without thrush, hairy leukoplakia or pharyngitis. Neck without adenopathy. Lungs quite clear. Cardiac tones: Regular rate and rhythm without murmur. Abdomen: Soft, nontender. He is not obese. His BMI is 27. He has a right flank incision which is well healed and without purulence or tenderness. Penis and scrotum appear normal. He does not have a Cabrera now. Minimal suprapubic tenderness is noted. He has no significant synovitis. No evidence of cellulitis or peripheral edema. Neurologically, he is intact. He can move all his extremities and he looks actually quite well. LABORATORIES: Include a white count was 20,000 on admission on the 11th yesterday, 11,000 today, January 10. The left shift he had on admission though has resolved. Platelet count 534,000. Creatinine 1.14. LFTs are normal. Procalcitonin 0.24. Urinalysis had 50 white cells when he arrived here on the . No red cells. Micro blood cultures on the are negative but the urine grew an Enterobacter which is resistant to Augmentin and nitrofurantoin but sensitive to other agents and exquisitely sensitive to Cipro with an MIGUELITO less than 0.25. IMAGING: Done during this admission includes a chest x-ray from the which shows a left midline nodule which appears relatively unchanged from prior but it is being monitored by Radiology and the primary care doctor. There is also a bit of atelectasis and I did review that chest x-ray myself on the computer. IMPRESSION: This gentleman suffered a post nephrectomy complicated urinary tract infection associated with hypotension and high fevers. Fortunately his Cabrera has now been out for three days and his symptoms are rapidly resolving with appropriate antimicrobial therapy. The organism turns out to be exquisitely susceptible to quinolones. Unfortunately it is not in his blood stream so I think oral therapy here would make a lot of sense. Bactrim could be used as susceptible to Bactrim but I find this to be a challenging agent to use in the elderly and I think Cipro would be an excellent choice. RECOMMENDATIONS: 1. The patient can be transitioned to Cipro 500 p.o. b.i.d. at any time. 2. I would continue the p.o. Cipro through January 20 to complete a two week course of therapy. 3. The patient could be discharged at any time. He has now been afebrile just 24 hours so one could keep him overnight to monitor him for fevers to be very conservative, or if we have great confidence in the patient and his family and their ability to take care of things at home, he could maybe even go home tonight with close followup and a visit in a week or so for a white blood count check and evaluation by Urology or his primary care doctor. 4. ID will sign off on this interesting case at this time, but thank you very much for this consult.
--- NOTE | 2017-01-10 18:27 | NUR ---
Discharge of patient reviewed discharge instructions with patient and patient's , both verbalized understanding. Patient discharged via wheelchair with prescriptions and instructions. IV and Telemetry previously discontinued. Patient left hospital with to home self care.
== END 2017-01-10 17:20 | disposition home or self-care (01) | DRG 698 ==
LOC: SED 09:27 → PCC 13:31
PROVIDERS: ADMIT Neuromusculoskeletal Medicine & OMM; ATTEND Neuromusculoskeletal Medicine & OMM
DX: T83.511A Infection and inflammatory reaction due to indwelling urethral catheter, initial encounter (principal); A41.9 Sepsis, unspecified organism; N17.9 Acute kidney failure, unspecified; N39.0 Urinary tract infection, site not specified; E11.9 Type 2 diabetes mellitus without complications; G89.29 Other chronic pain; K59.00 Constipation, unspecified; N40.0 Benign prostatic hyperplasia without lower urinary tract symptoms; F17.220 Nicotine dependence, chewing tobacco, uncomplicated; Z79.4 Long term (current) use of insulin; Z85.89 Personal history of malignant neoplasm of other organs and systems; Z85.528 Personal history of other malignant neoplasm of kidney; Z90.5 Acquired absence of kidney